=== PATIENT | female | born 1950 | race Caucasian/White ===

== ENCOUNTER 2021-03-09 06:35 | Day surgery (SDC) | payer MEDICARE, BC, SELFPAY ==
[2021-03-02 14:48] VITALS: BMI 31.1
--- NOTE | 2021-03-05 07:54 | MHC.SHP ---
Pre-Procedural Eval Section A Date of Service: 03/05/21 The patient is an INPATIENT: No The History & Physical has been completed within 30 days and I have reviewed it.: Yes Section B Chief Complaint: Cataract Right Eye Allergies: Allergies Allergy/AdvReac Type Severity Reaction Status Date / Time banana Allergy Intermediate lip Verified 03/02/21 14:54 swelling latex Allergy Intermediate lip Verified 03/02/21 14:54 swelling shellfish derived Allergy Intermediate lip Verified 03/02/21 14:54 swelling Plan Diagnosis/Plan: Unchanged I have reviewed the history and physical and performed a pertinent physical examination on my patient. No changes have occurred unless specified.
--- NOTE | 2021-03-06 10:43 | HO.ANESPROP2 ---
Documented by User: Aubrie Amanda 03/06/21 10:44 HPI - Anesthesia Eval Consult details Narrative: 70yo F for Right Cataract Extraction IOL Insertion PCP cleared No prev cataract on record PMFSH Past Medical History Medical History Anemia Anxiety Asthma Cervical spondylosis COVID-19 vaccine administered Elevated cholesterol History of MRSA infection HTN (hypertension) Hypothyroid Surgical History Surgical History H/O colonoscopy Social History Social History Are you a primary care coordination manager to a significant other at home: No Do you presently have visiting nurse or other home services: No Patient Tobacco Use Status: Former Tobacco user Quit Date: age 30 Tobacco use type: Cigarette Use of substances other than those prescribed or required for medical reasons: No Have you been hit, kicked, punched, or otherwise hurt by someone within the past year? If so, by whom?: No Advance Directives Information Provided: Yes Advance Directives on File: Yes Advance Directives Date on File: 03/09/21 Recently lost weight without trying: No Eating poorly because of decreased appetite: No Nutrition Risks: No Nutritional Risk Poor oral hygiene: No (has upper full denture) Meds Allergies Allergy/AdvReac Type Severity Reaction Status Date / Time banana Allergy Intermediate lip Verified 03/02/21 14:54 swelling latex Allergy Intermediate lip Verified 03/02/21 14:54 swelling shellfish derived Allergy Intermediate lip Verified 03/02/21 14:54 swelling Home Medications Medication Instructions Recorded Confirmed Last Taken Type albuterol sulfate [ProAir HFA] 2 puff INHALATION Q4-6H PRN 03/02/21 03/02/21 Unknown History aspirin [Aspirin Low Dose] 81 mg PO DAILY 03/02/21 03/02/21 03/08/21 08:00 History calcium carbonate-vitamin D2 1 tab PO DAILY 03/02/21 03/02/21 Unknown History [Calcium + Vitamin D] cetirizine 10 mg PO DAILY 03/02/21 03/02/21 Unknown History fluticasone propionate [Flonase] 1 spray INTRANASAL DAILY 03/02/21 03/02/21 Unknown History levothyroxine [Euthyrox] 1 tab PO DAILY 03/02/21 03/02/21 03/09/21 05:00 History losartan-hydrochlorothiazide 1 tab PO DAILY 03/02/21 03/02/21 Unknown History montelukast 1 tab PO QPM 03/02/21 03/02/21 Unknown History pravastatin 1 tab PO DAILY 03/02/21 03/02/21 Unknown History Exam Exam Date and Time: March 06, 2021 1043 Height,Weight and Vital Signs: Height 5 ft 4 in Weight 82.2 kg Assessment and Plan Assessment Anesthesia Assessment: Chart Reviewed Documented by User: Pascual Guerra 03/09/21 09:40 PMFSH Past Medical History Medical History Anemia Anxiety Asthma Cervical spondylosis COVID-19 vaccine administered Elevated cholesterol History of MRSA infection HTN (hypertension) Hypothyroid Surgical History Surgical History H/O colonoscopy Social History Social History Are you a primary care coordination manager to a significant other at home: No Do you presently have visiting nurse or other home services: No Patient Tobacco Use Status: Former Tobacco user Quit Date: age 30 Tobacco use type: Cigarette Use of substances other than those prescribed or required for medical reasons: No Have you been hit, kicked, punched, or otherwise hurt by someone within the past year? If so, by whom?: No Advance Directives Information Provided: Yes Advance Directives on File: Yes Advance Directives Date on File: 03/09/21 Recently lost weight without trying: No Eating poorly because of decreased appetite: No Nutrition Risks: No Nutritional Risk Poor oral hygiene: No (has upper full denture) Meds Allergies Allergy/AdvReac Type Severity Reaction Status Date / Time banana Allergy Intermediate lip Verified 03/02/21 14:54 swelling latex Allergy Intermediate lip Verified 03/02/21 14:54 swelling shellfish derived Allergy Intermediate lip Verified 03/02/21 14:54 swelling Home Medications Medication Instructions Recorded Confirmed Last Taken Type albuterol sulfate [ProAir HFA] 2 puff INHALATION Q4-6H PRN 03/02/21 03/02/21 Unknown History aspirin [Aspirin Low Dose] 81 mg PO DAILY 03/02/21 03/02/21 03/08/21 08:00 History calcium carbonate-vitamin D2 1 tab PO DAILY 03/02/21 03/02/21 Unknown History [Calcium + Vitamin D] cetirizine 10 mg PO DAILY 03/02/21 03/02/21 Unknown History fluticasone propionate [Flonase] 1 spray INTRANASAL DAILY 03/02/21 03/02/21 Unknown History levothyroxine [Euthyrox] 1 tab PO DAILY 03/02/21 03/02/21 03/09/21 05:00 History losartan-hydrochlorothiazide 1 tab PO DAILY 03/02/21 03/02/21 Unknown History montelukast 1 tab PO QPM 03/02/21 03/02/21 Unknown History pravastatin 1 tab PO DAILY 03/02/21 03/02/21 Unknown History Exam Airway Mallampati Class: II TM Dist: >3cm Neck ROM: Full Denture: Upper Heart: [id number] Lungs: cta b/l Assessment and Plan Assessment Anesthesia Assessment: Anesthesia Plan Discussed, PAT Visit and Chart Reviewed Final Anesthetic Review NPO: Yes ASA Class: III Final Preanesthetic Review: No Changes in Pt Med Stat, Meds/Allgs Chart Reviewed, Consent Obtained/Reviewed and Anes Risks/Benef Reviewed Patient Risk: Intermediate Procedure Risk: Low Assessment/Block/Sedation in SS: Assess/Block/Sedation-SS Anesthetic Plan Anesthetic Plan: MAC: and Agree w/ Assess. and Plan Disposition: Standard PACU
[2021-03-09 07:22] VITALS: BP 153/76; PULSE 71; RESP 18; TEMP 36.4; O2SAT 95
[2021-03-09] MEDS: Lactated Ringers 500 ML 50 ML IV (07:31)
[2021-03-09] MEDS: Tetracaine HCl/PF 0.5% Oph Sol 4 ML DROPS 1 DROP EYE-RIGHT (07:41)
[2021-03-09] MEDS: Tropicamide 1 % Ophth Sol 3 ML BTL 1 DROP EYE-RIGHT ×3 (07:42→07:54)
[2021-03-09] MEDS: Phenylephrine HCL 2.5% Oph SoL 2 ML BOTTLE 1 DROP EYE-RIGHT ×3 (07:46→07:58)
--- NOTE | 2021-03-09 10:27 | HO.PNOPHT ---
Ophthalmology Procedure Procedure Date of Service: 03/09/21 Ophthalmology Viscoelastic: Healclemente Duet Dual Pack Pro Ophthalmology Lenses: TECNIS [id number] (20) Procedure Notes: PREOPERATIVE DIAGNOSIS: Decreased visual acuity right eye secondary to cataract POSTOPERATIVE DIAGNOSIS: Same PROCEDURE: Right cataract extraction with intraocular lens insertion SURGEON: Ramírez Gibson M.D. ANESTHESIA: Topical/MAC ESTIMATED BLOOD LOSS: None COMPLICATIONS: None After obtaining informed consent, the patient was brought to the operating room suite and placed in the supine position. After adequate sedation per anesthesia, topical drops of Tetracaine were given to the right eye. The eye was then prepped and draped in the usual sterile fashion. The operating room microscope was then positioned over the operative eye and a lid speculum placed. A paracentesis was created. Viscoelastic was then instilled into the anterior chamber. A three plane incision was then created temporally, utilizing a 2.85 mm keratome. Capsulotomy forceps were then utilized to create a circular tear capsulotomy. Hydrodissection and hydrodelineation were carried out until adequate mobilization of the nucleus occurred. Phacoemulsification was then utilized to remove the dense central nucleus followed by removal of the cortical material utilizing the automated aspiration irrigation unit. Viscoelastic was instilled into the posterior capsular bag followed by placement of a posterior chamber intraocular lens without difficulty. The residual Viscoelastic was then removed utilizing the automated IA machine. The wound was checked and found to be watertight. The patient tolerated the procedure well and the lid speculum was removed. Intracameral injection of Vigamox 0.1 mL followed by a subtenon injection of Kenalog-40 0.2 mL were administered. The patient will be seen in the a.m.
[2021-03-09 10:48] VITALS: BP 148/72; PULSE 71; RESP 18; TEMP 36.6; O2SAT 97
== END 2021-03-09 11:24 | disposition home or self-care (01) ==
PROVIDERS: PCP Internal Medicine; Visit Provider Ophthalmology
PROC: (CPT 66985; principal; 2021-03-09 10:50)
DX: H25.11 Age-related nuclear cataract, right eye (principal); H52.4 Presbyopia; D50.9 Iron deficiency anemia, unspecified; J45.909 Unspecified asthma, uncomplicated; I10 Essential (primary) hypertension; E03.9 Hypothyroidism, unspecified; Z79.51 Long term (current) use of inhaled steroids; Z79.82 Long term (current) use of aspirin; Z79.899 Other long term (current) drug therapy; Z91.040 Latex allergy status; Z87.891 Personal history of nicotine dependence
CPT/HCPCS: 66984; J2250; J3300; V2632

== ENCOUNTER 2021-03-16 07:40 | Day surgery (SDC) | payer MEDICARE, BC, SELFPAY ==
[2021-03-02 14:58] VITALS: BMI 31.1
--- NOTE | 2021-03-11 13:03 | MHC.SHP ---
Pre-Procedural Eval Section A Date of Service: 03/11/21 The patient is an INPATIENT: No The History & Physical has been completed within 30 days and I have reviewed it.: Yes Section B Chief Complaint: Cataract Left Eye Allergies: Allergies Allergy/AdvReac Type Severity Reaction Status Date / Time banana Allergy Intermediate lip Verified 03/02/21 14:54 swelling latex Allergy Intermediate lip Verified 03/02/21 14:54 swelling shellfish derived Allergy Intermediate lip Verified 03/02/21 14:54 swelling Plan Diagnosis/Plan: Unchanged I have reviewed the history and physical and performed a pertinent physical examination on my patient. No changes have occurred unless specified.
--- NOTE | 2021-03-13 08:34 | HO.ANESPROP2 ---
Documented by User: Aubrie Amanda 03/13/21 08:35 HPI - Anesthesia Eval Consult details Narrative: 70yo F for Left Cataract Extraction IOL Insertion PCP cleared Right Eye 03/09: Midaz 2 PMFSH Past Medical History Medical History Anemia Anxiety Asthma Cervical spondylosis COVID-19 vaccine administered Elevated cholesterol History of MRSA infection HTN (hypertension) Hypothyroid Surgical History Surgical History H/O colonoscopy Social History Social History Are you a primary social worker palliative care to a significant other at home: No Do you presently have visiting nurse or other home services: No Patient Tobacco Use Status: Former Tobacco user Quit Date: age 30 Tobacco use type: Cigarette Use of substances other than those prescribed or required for medical reasons: No Have you been hit, kicked, punched, or otherwise hurt by someone within the past year? If so, by whom?: No Advance Directives Information Provided: No Advance Directives on File: No Advance Directives Date on File: 03/09/21 Recently lost weight without trying: No Eating poorly because of decreased appetite: No Nutrition Risks: No Nutritional Risk Poor oral hygiene: No (upper full denture) Meds Allergies Allergy/AdvReac Type Severity Reaction Status Date / Time banana Allergy Intermediate lip Verified 03/16/21 09:10 swelling latex Allergy Intermediate lip Verified 03/16/21 09:10 swelling shellfish derived Allergy Intermediate lip Verified 03/16/21 09:10 swelling Home Medications Medication Instructions Recorded Confirmed Last Taken Type albuterol sulfate [ProAir HFA] 2 puff INHALATION Q4-6H PRN 03/02/21 03/02/21 Unknown History aspirin [Aspirin Low Dose] 81 mg PO DAILY 03/02/21 03/02/21 03/15/21 History calcium carbonate-vitamin D2 1 tab PO DAILY 03/02/21 03/02/21 Unknown History [Calcium + Vitamin D] cetirizine 10 mg PO DAILY 03/02/21 03/02/21 Unknown History fluticasone propionate [Flonase] 1 spray INTRANASAL DAILY 03/02/21 03/02/21 Unknown History levothyroxine [Euthyrox] 1 tab PO DAILY 03/02/21 03/02/21 03/16/21 06:30 History losartan-hydrochlorothiazide 1 tab PO DAILY 03/02/21 03/02/21 Unknown History montelukast 1 tab PO QPM 03/02/21 03/02/21 Unknown History pravastatin 1 tab PO DAILY 03/02/21 03/02/21 Unknown History Exam Exam Date and Time: March 13, 2021 0834 Height,Weight and Vital Signs: Height 5 ft 4 in Weight 82.2 kg Assessment and Plan Assessment Anesthesia Assessment: Chart Reviewed Documented by User: Анна Devine 03/16/21 09:43 PMFSH Past Medical History Medical History Anemia Anxiety Asthma Cervical spondylosis COVID-19 vaccine administered Elevated cholesterol History of MRSA infection HTN (hypertension) Hypothyroid Surgical History Surgical History H/O colonoscopy Social History Social History Are you a primary social worker palliative care to a significant other at home: No Do you presently have visiting nurse or other home services: No Patient Tobacco Use Status: Former Tobacco user Quit Date: age 30 Tobacco use type: Cigarette Use of substances other than those prescribed or required for medical reasons: No Have you been hit, kicked, punched, or otherwise hurt by someone within the past year? If so, by whom?: No Advance Directives Information Provided: No Advance Directives on File: No Advance Directives Date on File: 03/09/21 Recently lost weight without trying: No Eating poorly because of decreased appetite: No Nutrition Risks: No Nutritional Risk Poor oral hygiene: No (upper full denture) Meds Allergies Allergy/AdvReac Type Severity Reaction Status Date / Time banana Allergy Intermediate lip Verified 03/16/21 09:10 swelling latex Allergy Intermediate lip Verified 03/16/21 09:10 swelling shellfish derived Allergy Intermediate lip Verified 03/16/21 09:10 swelling Home Medications Medication Instructions Recorded Confirmed Last Taken Type albuterol sulfate [ProAir HFA] 2 puff INHALATION Q4-6H PRN 03/02/21 03/02/21 Unknown History aspirin [Aspirin Low Dose] 81 mg PO DAILY 03/02/21 03/02/21 03/15/21 History calcium carbonate-vitamin D2 1 tab PO DAILY 03/02/21 03/02/21 Unknown History [Calcium + Vitamin D] cetirizine 10 mg PO DAILY 03/02/21 03/02/21 Unknown History fluticasone propionate [Flonase] 1 spray INTRANASAL DAILY 03/02/21 03/02/21 Unknown History levothyroxine [Euthyrox] 1 tab PO DAILY 03/02/21 03/02/21 03/16/21 06:30 History losartan-hydrochlorothiazide 1 tab PO DAILY 03/02/21 03/02/21 Unknown History montelukast 1 tab PO QPM 03/02/21 03/02/21 Unknown History pravastatin 1 tab PO DAILY 03/02/21 03/02/21 Unknown History Exam Airway Mallampati Class: II TM Dist: >3cm Neck ROM: Full Heart: rrr Lungs: cta Assessment and Plan Assessment Anesthesia Assessment: Anesthesia Plan Discussed and Chart Reviewed Final Anesthetic Review NPO: Yes ASA Class: II Final Preanesthetic Review: No Changes in Pt Med Stat and Consent Obtained/Reviewed Patient Risk: Low Procedure Risk: Low Anesthetic Plan Anesthetic Plan: MAC: Disposition: Standard PACU
[2021-03-16 09:16] VITALS: BP 171/74; PULSE 65; RESP 16; TEMP 36.8; O2SAT 97
[2021-03-16] MEDS: Tetracaine HCl/PF 0.5% Oph Sol 4 ML DROPS 1 DROP EYE-LEFT (09:18)
[2021-03-16] MEDS: Tropicamide 1 % Ophth Sol 3 ML BTL 1 DROP EYE-LEFT ×3 (09:22→09:23)
[2021-03-16] MEDS: Phenylephrine HCL 2.5% Oph SoL 2 ML BOTTLE 1 DROP EYE-LEFT ×3 (09:22→09:23)
[2021-03-16] MEDS: Lactated Ringers 500 ML 50 ML IV (09:22)
--- NOTE | 2021-03-16 10:26 | HO.PNOPHT ---
Ophthalmology Procedure Procedure Date of Service: 03/16/21 Ophthalmology Viscoelastic: Healon Duet Dual Pack Pro Ophthalmology Lenses: TECNIS [id number] (19.5) Procedure Notes: PREOPERATIVE DIAGNOSIS: Decreased visual acuity left eye secondary to cataract POSTOPERATIVE DIAGNOSIS: Same PROCEDURE: Left cataract extraction with intraocular lens insertion SURGEON: Ramírez Gibson M.D. ANESTHESIA: Topical/MAC ESTIMATED BLOOD LOSS: None COMPLICATIONS: None After obtaining informed consent, the patient was brought to the operation room suite and placed in the supine position. After adequate sedation per anesthesia, topical drops of Tetracaine were given to the left eye. The eye was then prepped and draped in the usual sterile fashion. The operating room microscope was then positioned over the operative eye and a lid speculum placed. A paracentesis was created. Viscoelastic was then instilled into the anterior chamber. A three plane incision was then created temporally, utilizing a 2.85 mm keratome. Capsulotomy forceps were then utilized to create a circular tear capsulotomy. Hydrodissection and hydrodelineation were carried out until adequate mobilization of the nucleus occurred. Phacoemulsification was then utilized to remove the dense central nucleus followed by removal of the cortical material utilizing the automated aspiration irrigation unit. Viscoat elastic was instilled into the posterior capsular bag followed by placement of a posterior chamber intraocular lens without difficulty. The residual Viscoat elastic was then removed utilizing the automated IA machine. The wound was check and found to be watertight. The patient tolerated the procedure well and the lid speculum was removed. Intracameral injection of Vigamox 0.1 mL followed by a subtenon injection of Kenalog-40 0.2 mL were administered. The patient will be seen in the a.m.
[2021-03-16 10:51] VITALS: BP 142/77; PULSE 62; RESP 16; TEMP 36.3; O2SAT 96
== END 2021-03-16 11:10 | disposition home or self-care (01) ==
PROVIDERS: PCP Internal Medicine; Visit Provider Ophthalmology
PROC: (CPT 66985; principal; 2021-03-16 10:40)
DX: H25.12 Age-related nuclear cataract, left eye (principal); H52.4 Presbyopia; I10 Essential (primary) hypertension; E03.9 Hypothyroidism, unspecified; J45.909 Unspecified asthma, uncomplicated; Z79.899 Other long term (current) drug therapy; Z91.040 Latex allergy status; Z87.891 Personal history of nicotine dependence
CPT/HCPCS: 66984; J2250; J3010; J3300; V2632

== ENCOUNTER 2021-05-21 16:31 | Outpatient (REF) | payer MEDICARE, BC, SELFPAY | END 2021-05-21 16:32 | disposition home or self-care (01) | LOC: HO.LNP 16:31 | PROVIDERS: Visit Provider Internal Medicine | DX: J06.9 Acute upper respiratory infection, unspecified (principal); Z20.822 Contact with and (suspected) exposure to COVID-19 | CPT/HCPCS: U0003; U0005 ==

== ENCOUNTER 2023-10-27 15:40 | Inpatient (IN) | payer MEDICARE, BC, SELFPAY ==
--- NOTE | ~2023-10-27 | XR_ITS ---
EXAMINATION: XR PELVIS CLINICAL INFORMATION: Postop COMPARISON: None available. TECHNIQUE: AP view of the pelvis. FINDINGS: No fracture. There is a left total hip prosthesis in satisfactory position. There is mild degenerative change of the right hip. Alignment is anatomic. Visualized portions of the sacroiliac joints and the pubic symphysis are normal. Skin dudley are seen over the left hip. XR/XR pelvis 1-2V IMPRESSION: Left total hip prosthesis in satisfactory position.
--- NOTE | ~2023-10-27 | XR_ITS ---
EXAMINATION: XR HIP, LEFT CLINICAL INFORMATION: Trauma. COMPARISON: None available. TECHNIQUE: Two views of the left hip. FINDINGS: There is a left femoral subcapital neck fracture with impaction and mild posterior angulation. There is no dislocation seen. There is mild degenerative changes right hip joint with loss of joint space and periarticular spurring. The SI joints are symmetrical and normal. There is mild left hip soft tissue swelling. XR/XR hip LT w PEL1V IMPRESSION: Subcapital left neck femoral fracture with likely mild impaction and posterior angulation. There is foreshortening of the neck. Mild soft tissue swelling.
--- NOTE | ~2023-10-27 | CT_ITS ---
EXAMINATION: CT cervical spine without contrast, CT head/brain without contrast INDICATION INFORMATION: Reason for Exam trauma COMPARISON: MR brain 02/19/2016 TECHNIQUE: Separate noncontrast CT examinations of the head and cervical spine were performed. Coronal and sagittal images were created for each examination at the technologist workstation. This CT examination was performed using dose optimization techniques as appropriate, variously including the following: *Automated exposure control *Adjustment of mA and/or kV according to patient size (this includes techniques or standardized protocols for targeted exams where dose is matched to indication/reason for exam; i.e. extremities or head) *Use of iterative reconstruction technique DLP: 1084.06 mGy-cm mGy-cm FINDINGS: Head: No acute osseous or soft tissue abnormality. The mastoid air cells and visualized portions of the paranasal sinuses are well aerated. Bilateral lens replacements. There is no evidence of acute intracranial hemorrhage or territorial infarction. No abnormal mass effect or midline shift is seen. Larsen to white matter differentiation is well preserved. No extra-axial fluid collections are identified. No hydrocephalus. Proportional prominence of the ventricles and sulcal spaces is consistent with moderate volume loss. Patchy periventricular and deep white matter hypoattenuation is consistent with mild small vessel ischemic changes. Cervical spine: There is no evidence of acute cervical spine fracture. Vertebral bodies remain normal in height. Loss of the usual cervical spine lordosis. Advanced multilevel degenerative disc disease with loss of disc space height and advanced facet arthropathy which results in multilevel severe neural foraminal narrowing. No pre- or paravertebral soft tissue abnormality is identified. Visualized portions of the lung apices are unremarkable. The thyroid gland is atrophic. CT/CT cervical spine wo IV con IMPRESSION: 1. No acute intracranial abnormality. 2. No cervical spine fracture or traumatic malalignment. 3. Advanced multilevel degenerative disc disease in the cervical spine with multilevel severe neural foraminal narrowing.
--- NOTE | ~2023-10-27 | XR_ITS ---
EXAMINATION: XR CHEST CLINICAL INFORMATION: Trauma. COMPARISON: None available. TECHNIQUE: Frontal view of the chest was obtained. FINDINGS: Heart size is normal. Both lungs are clear. No pleural effusion. No pneumothorax. No acute osseous abnormality. XR/XR chest 1V IMPRESSION: No acute cardiopulmonary disease.
[2023-10-27 16:03] VITALS: BP 134/80; BP 136/76; PULSE 63; PULSE 72; RESP 18; TEMP 36.5; O2SAT 93; O2SAT 98; BMI 27.6
--- NOTE | 2023-10-27 16:09 | ECG_ITS ---
Test Reason : PAIN Blood Pressure : / mmHG Vent. Rate : 065 BPM Atrial Rate : 065 BPM P-R Int : 152 ms QRS Dur : 084 ms QT Int : 480 ms P-R-T Axes : 042 -13 -07 degrees QTc Int : 500 ms Normal sinus rhythm Nonspecific ST and T wave abnormality Prolonged QTc Abnormal ECG No previous ECGs available Referred By: Keven Cedillo Electronically Signed By:Ivan Corado
--- NOTE | 2023-10-27 16:10 | PC.NURSE ---
a&ox4. vss and up to date. nsr on the front desk monitor. pt presents to the ED d/t a witnessed fall at her daughter's house. pt was in the kitchen when she tripped/fell over a bag that was on the floor. +headstrike onto the fridge as well as the floor. -loc. -thinners. pt c/o 10/10 left sided hip pain as well as nausea. extremely tender to touch. limited ROM. no sob/wob noted. respirations even and unlabored. pt in c-collar at this time. pt seen by ED provider/aware of plan of care at this time. daughter bedside for support. call palmer placed within reach.
--- NOTE | 2023-10-27 16:14 | ED.GENADULT ---
HPI - General Adult General Chief complaint: Fall Stated complaint: Poss fx hip, visible L leg deformity from [facility] fal Time Seen by Provider: 10/27/23 16:01 Source: patient, family, EMS, RN notes reviewed and old records reviewed Mode of arrival: EMS Limitations: no limitations History of Present Illness HPI narrative: 72-year-old female with past medical history significant for Jimena's thyroiditis, hypertension, hyperlipidemia presents for evaluation after a fall. Patient reports that she tripped over a bag that was on the floor. Her daughter witnessed the event and saw her strike her head The patient did not have any loss of consciousness. She complains of 10/10 left hip pain. Denies any head or neck pain but she presents in a C-collar She was given fentanyl 75 mcg and normal saline 200 cc via IV and route to the hospital She still endorses some mild nausea but her pain seems better controlled Related Data Home Medications Medication Instructions Recorded Confirmed albuterol sulfate 90 mcg/actuation 2 puff inhalation Q4-6H PRN 03/02/21 03/02/21 aerosol inhaler (ProAir HFA) Wheezing aspirin 81 mg tablet,delayed 81 mg PO DAILY 03/02/21 03/02/21 release (Nik Low Dose Aspirin) calcium carb-ergocalciferol (vit 1 tab PO DAILY 03/02/21 03/02/21 D2) 600 mg calcium-200 unit tablet cetirizine 10 mg tablet 10 mg PO DAILY 03/02/21 03/02/21 fluticasone propionate 50 1 spray intranasal DAILY 03/02/21 03/02/21 mcg/actuation nasal spray,suspension levothyroxine 100 mcg tablet 1 tab PO DAILY 03/02/21 03/02/21 (Euthyrox) losartan 100 1 tab PO DAILY 03/02/21 03/02/21 mg-hydrochlorothiazide 25 mg tablet montelukast 10 mg tablet 1 tab PO QPM 03/02/21 03/02/21 pravastatin 40 mg tablet 1 tab PO DAILY 03/02/21 03/02/21 Allergies Allergy/AdvReac Type Severity Reaction Status Date / Time banana Allergy Intermediate lip Verified 05/21/21 13:50 swelling latex Allergy Intermediate lip Verified 05/21/21 13:50 swelling shellfish derived Allergy Intermediate lip Verified 05/21/21 13:50 swelling ibuprofen Allergy Unknown Verified 10/27/23 16:10 Review of Systems Constitutional: Constitutional: Denies frequent falls and Denies headache(s) Eyes: Eyes: Denies blurry vision ENT: Denies headache(s) Cardiovascular: Cardiovascular: Denies chest pain and Denies syncope Respiratory: Respiratory: Denies cough Gastrointestinal: Gastrointestinal: Denies abdominal pain Musculoskeletal: Musculoskeletal: Reports arthralgias, Reports joint swelling and Reports limited range of motion Integumentary/Breasts: Skin/Breast: Denies rash Neurologic: Denies syncope, Denies frequent falls and Denies headache(s) [facility] Past Medical History Medical History Anemia Anxiety Asthma Cervical spondylosis COVID-19 vaccine administered Elevated cholesterol History of MRSA infection HTN (hypertension) Hypothyroid Surgical History H/O colonoscopy Social History Social History Are you a primary child care assistant to a significant other at home: No Do you presently have visiting nurse or other home services: No Patient Tobacco Use Status: Former Tobacco user Quit Date: age 30 Tobacco use type: Cigarette Smoked in Last 30 Days: No Use of substances other than those prescribed or required for medical reasons: No Advance Directives: Yes Advance Directives on File: Yes Advance Directives Date on File: 03/09/21 Physical Exam ED Vital Signs: Vital Signs - 24 hr 10/27/23 16:03 Temperature 97.7 F Pulse Rate 63 Respiratory Rate 18 Blood Pressure 136/76 Pulse Oximetry 93 Oxygen Delivery Method Room Air BMI result Body Mass Index 27.6 Const General: healthy appearing, alert and awake Nutritional Appearance: well nourished Orientation/consciousness: patient oriented x3 HENMT Head: Yes normocephalic and Yes atraumatic Eyes Eyelids: Yes eyelids normal Conjunctivae: conjunctivae normal Sclerae: sclerae normal Corneas: corneas normal Pupils: Equal, round and reactive pupils present EOM: EOMs intact bilaterally Resp Effort & Inspection: normal respiratory effort, able to speak in complete sentences and not labored GI Inspection: No distended Palpation (GI): Soft to palpation, not firm, nontender, no guarding and not rigid General: Yes no CVA tenderness Back/Spine/Pelvis Back: no CVA tenderness Cervical Spine: collar present and No Cervical spine tenderness Skin General skin exam: elasticity normal Neuro Other: Patient has slight shortening with external rotation of the left lower extremity. She is tender in the left hip minimal range of motion left hip. She is able to wiggle all her toes. DP pulses 2+ and equal General: patient oriented x3 Cranial nerves: Yes Equal, round and reactive pupils present and Yes Bilaterally intact EOM present Cognition (Neuro): normal cognition Extrem Other: Moving all extremities well without any obvious deformities Medications Administered Discontinued Medications Generic Name Dose Route Start Last Admin Trade Name Rudy PRN Reason Stop Dose Admin Fentanyl 50 mcg 10/27/23 16:19 10/27/23 16:30 Fentanyl Citrate/Pf 100 Mcg/2 Ml Vial IVPUSH 10/27/23 16:20 50 mcg ONCE ONE Administration Protocol Metoclopramide HCl 10 mg 10/27/23 16:19 10/27/23 16:31 Metoclopramide Hcl 10 Mg/2 Ml Vial IVPUSH 10/27/23 16:20 10 mg ONCE ONE Administration Ondansetron HCl 4 mg 10/27/23 16:48 10/27/23 17:25 Ondansetron Hcl 4 Mg/2 Ml Vial IVPUSH 10/27/23 16:49 4 mg ONCE ONE Administration Medical Decision Making Medical Decision Making [facility] Narrative: 72-year-old female presents after a fall, her left lower extremity is shortened and rotated, highly concerning for left hip fracture. Plan for x-rays left hip and chest due to the fall/trauma. She arrived in a C-collar from EMS, unable to clear the C-collar with nexus criteria due to the likely distracting injury. Plan for CT brain, cervical spine as the daughter did witnessed head strike. Labs ordered, if hip fracture is confirmed the patient will likely require a Palma catheter Differential Diagnosis Differential Diagnoses: The differential diagnosis associated with the presentation includes Left hip fracture Hip dislocation Pelvic fracture Contusion Cervical strain Concussion Admission/Observation Consideration of admission/observation: Escalation of care including admission/observation considered Consult Healthcare Provider Management of the patient was discussed with: Dialysis Rn (Dr. Rodriguez, orthopedics due to hip fracture) Lab Data [facility] Lab Attestation statement: I reviewed the patient's lab results. No leukocytosis, mild anemia with a hemoglobin 11.9 hematocrit 34.7. A low platelet count of 141 K. no left shift. Coagulation studies within normal limits. Chemistry in his he has a significant for a hypokalemia of 2.8, this is likely related to hydrochlorothiazide use and will be supplemented orally. No other significant electrolyte abnormalities. 10/27/23 16:18 10/27/23 16:18 Labs: Lab Results 10/27/23 10/27/23 Range/Units 16:18 16:39 WBC 5.8 (4.8-10.8) X10*3/uL RBC 3.94 L (4.20-5.50) X10*6/uL Hgb 11.9 L (12.0-16.0) g/dl Hct 34.7 L (37.0-47.0) % MCV 88.1 (80.0-98.0) fL MCH 30.2 (27.0-33.0) pg MCHC 34.3 (31.0-35.0) g/dl RDW 12.6 (11.0-16.0) % Plt Count 141 L (160-400) X10*3/uL MPV 11.0 (9.4-12.3) fL Immature Gran % (Auto) 0.7 H (0.0-0.4) % Neut % (Auto) 51.9 (45-73) % Lymph % (Auto) 38.4 (20-40) % [place] % (Auto) 7.1 (2-11) % Eos % (Auto) 1.4 (0-4) % Baso % (Auto) 0.5 (0-2) % Lymph # (Auto) 2.2 (1.2-4.9) X10*3/uL [place] # (Auto) 0.4 (0.1-1.2) X10*3/uL Eos # (Auto) 0.1 (0.0-0.4) X10*3/uL Baso # (Auto) 0.0 (0.0-0.2) X10*3/uL Abs Immat Gran (auto) 0.04 H (0.00-0.03) X10*3/uL Absolute Neuts (auto) 3.0 (2.0-8.3) x10*3/uL Absolute Nucleated RBC 0.000 (0.0-0.012) X10*3/uL Nucleated RBC % (auto) 0.0 (0.0-0.2) /100WBC PT 13.3 (11.1-13.3) SEC INR 1.1 (0.9-1.1) Sodium 139 (135-145) mmol/L Potassium 2.8 L* (3.3-5.1) mmol/L Chloride 106 (96-108) mmol/L Carbon Dioxide 27 (22-29) mmol/L Anion Gap 9 L (12-20) BUN 12 (9-16) mg/dL Creatinine 0.60 (0.5-1.4) mg/dL Estim Creat Clear Calc 86.4 Estimated GFR > 60 Random Glucose 154 H (60-115) mg/dL Calcium 8.3 L (8.4-10.2) mg/dL Total Bilirubin 1.4 H (0.0-1.0) mg/dL AST 35 H (5-31) U/L ALT 24 (0-31) U/L Alkaline Phosphatase 58 (39-117) U/L Troponin I High Sens < 2.7 (<3.5-17.0) ng/L Total Protein 6.2 L (6.5-8.0) g/dL Albumin 3.7 (3.5-5.0) g/dL Lipase 24 (8-78) U/L Blood Type A Positive Antibody Screen NEGATIVE Independent Interpretation I performed an independent interpretation of an: Plain X-Ray (Acute fracture of the left femoral neck with superior displacement of the femur) Radiology Impression Discussion of test interpretation with radiology: I have reviewed the radiologist's reading. (No acute intracranial abnormality. No cervical spine fracture or traumatic malalignment. There is advanced multilevel degenerative disc disease in the cervical spine with multilevel severe neural foraminal narrowing) Discharge Plan Discharge Clinical Impression: Closed hip fracture Qualifiers: Encounter type: initial encounter Laterality: left Qualified Code(s): S72.002A - Fracture of unspecified part of neck of left femur, initial encounter for closed fracture Patient Disposition: Admitted As Inpatient Prescriptions: No Action cetirizine 10 mg Tablet 10 mg PO DAILY pravastatin 40 mg tablet 1 tab PO DAILY aspirin [Nik Low Dose Aspirin] 81 mg Tablet,Delayed Release (Dr/Ec) 81 mg PO DAILY levothyroxine [Euthyrox] 100 mcg tablet 1 tab PO DAILY losartan-hydrochlorothiazide 100-25 mg tablet 1 tab PO DAILY montelukast 10 mg tablet 1 tab PO QPM Calcium + Vitamin D 600 mg calcium- 200 unit Tablet 1 tab PO DAILY albuterol sulfate [ProAir HFA] 90 mcg/actuation Hfa Aerosol Inhaler 2 puff INHALATION Q4-6H PRN (Reason: Wheezing) fluticasone propionate [Flonase] 50 mcg/actuation Jean,Suspension 1 spray INTRANASAL DAILY
--- NOTE | 2023-10-27 16:18 | PC.NURSE ---
18gIV placed in the left AC by EMS. patent/intact. labs obtained/sent to lab. pt c/o increase in pain - requesting medication. ED provider notified/aware.
[2023-10-27 16:24] LABS: MANUAL DIFF FLAG NO
[2023-10-27 16:25] LABS: Basophils Percent Auto 0.5 % (0-2); Eosinophils Absolute Auto 0.1 X10*3/uL (0.0-0.4); Eosinophils Percent Auto 1.4 % (0-4); Hematocrit 34.7 % (37.0-47.0); Hemoglobin 11.9 g/dl (12.0-16.0); Imm Gran Abs Auto 0.04 X10*3/uL (0.00-0.03); Imm Gran Pct Auto 0.7 % (0.0-0.4); Lymphocytes Absolute Auto 2.2 X10*3/uL (1.2-4.9); Lymphocytes Percent Auto 38.4 % (20-40); Mean Corpuscular HGB Conc 34.3 g/dl (31.0-35.0); Mean Corpuscular Hemoglobin 30.2 pg (27.0-33.0); Mean Corpuscular Volume 88.1 fL (80.0-98.0); Monocytes Absolute Auto 0.4 X10*3/uL (0.1-1.2); Monocytes Percent Auto 7.1 % (2-11); Neutrophils Percent Auto 51.9 % (45-73); Platelet Count 141 X10*3/uL (160-400); Red Blood Count 3.94 X10*6/uL (4.20-5.50); Red Cell Distribution Width 12.6 % (11.0-16.0); White Blood Count 5.8 X10*3/uL (4.8-10.8)
[2023-10-27] MEDS: fentaNYL citrate/PF 100 MCG/2 ML VIAL 50 MCG IVPUSH (16:30)
[2023-10-27 16:31] LABS: INTERNATIONAL NORM RATIO 1.1 (0.9-1.1); Prothrombin Time 13.3 SEC (11.1-13.3)
[2023-10-27] MEDS: Metoclopramide HCl 10 MG/2 ML VIAL IVPUSH (16:31)
--- NOTE | 2023-10-27 16:35 | PC.NURSE ---
medication administered per provider order. effectiveness pending. pt vomited onto c-collar/shirt. new c-collar placed. pt waiting to go to CT at this time. tech performing ekg. plan of care ongoing.
[2023-10-27 16:49] LABS: Troponin-I High Sensitivity < 2.7 ng/L (<3.5-17.0)
[2023-10-27 16:50] LABS: Alanine Aminotransferase 24 U/L (0-31); Albumin Level 3.7 g/dL (3.5-5.0); Alkaline Phosphatase 58 U/L (39-117); Anion Gap 9 (12-20); Aspartate Amino Transferase 35 U/L (5-31); Bilirubin Total 1.4 mg/dL (0.0-1.0); Blood Urea Nitrogen 12 mg/dL (9-16); Calcium 8.3 mg/dL (8.4-10.2); Carbon Dioxide 27 mmol/L (22-29); Chloride 106 mmol/L (96-108); Creatinine Clr Calc Pharmacy 86.4; Estimated Glomerular Filt Rate > 60; Glucose Random 154 mg/dL (60-115); Lipase 24 U/L (8-78); Potassium 2.8 mmol/L (3.3-5.1); Sodium 139 mmol/L (135-145); Total Protein 6.2 g/dL (6.5-8.0)
[2023-10-27] MEDS: ondansetron HCL 4 MG/2 ML VIAL IVPUSH ×2 (17:25→20:39)
[2023-10-27] MEDS: Potassium Chloride ER 20 MEQ TAB.ER.PRT 40 MEQ PO (18:38)
[2023-10-27 18:53] VITALS: BP 145/72; PULSE 78; RESP 16; O2SAT 93
[2023-10-27 19:00] LABS: Appearance Urine Cloudy; Color Urine Yellow; Glucose Urine UA Negative (Negative); Leukocyte Esterase Urine Trace (Negative); Nitrite Urine Negative (Negative); Specific Gravity - Urine 1.015 (1.005-1.025); UMIC TRIGGER UACC YES; Urine Blood Negative (Negative); Urine Ketones Trace mg/dL (Negative); Urine Protein Negative (Neg-Trace)
--- NOTE | 2023-10-27 19:01 | PM.IMHP ---
History of Present Illness Date of Service: 10/27/23 Attending physician on admission: Lizzeth Glynn Chief Complaint: Fall at home with left hip pain Pt is a 72-year-old female with a PMH significant for?HTN, HLD, mild persistent asthma, and hypothyroidism who presents to the ED for evaluation after mechanical fall at home. Patient was at daughter's home talking to her in the kitchen when she tripped over a bag on the floor and landed on her left hip on the ceramic tile floor. Head apparently struck refrigerator. Fall was witnessed by patient's daughter. Patient immediately complained of 10/10 left hip pain and was unable to stand or bear weight on left leg. Denies loss of consciousness. No lightheadedness or dizziness. Patient seen and examined in room where she is resting comfortably in bed. Reports still feeling a dull ache in left hip, though pain overall well managed. Reports feeling ?a little? numbness and tingling in left leg. Experienced one episode nausea and vomiting earlier in the day. Denies fever, chills, abdominal pain. No shortness of breath. Denies cough. No chest pain/pressure, palpitations. In the ED pt was slightly hypertensive up to 145/72, vitals otherwise WNL. Labs were significant for potassium of 2.8, bilirubin 1.4, and AST 35. No leukocytosis. Renal function baseline. Troponins negative. UA negative for UTI. Hip and pelvis x-ray found subcapital left neck femoral fracture with likely mild impaction and posterior angulation. CXR showed no acute cardiopulmonary disease. CT?of head found no acute intracranial abnormality. CT of cervical spine found no acute fracture or traumatic malalignment, but did show advanced multilevel degenerative disc disease. EKG demonstrated normal sinus rhythm without evidence of significant acute ischemia. Pt was treated with fentanyl, metoclopramide, ondansetron, and potassium chloride. Pt will be admitted to the hospital for treatment and further evaluation of acute left hip fracture. Review of Systems Review of Systems: Fall at home on left hip Left hip fracture Nausea and vomiting x1 episode Denies lightheadedness, dizziness No chest pain/pressure, palpitations Denies fever, chills, abdominal pain No shortness a breath [facility] Medical History Anemia Anxiety Asthma Cervical spondylosis COVID-19 vaccine administered Elevated cholesterol History of MRSA infection HTN (hypertension) Hypothyroid Surgical History H/O colonoscopy Social History Are you a primary medicare interviewer to a significant other at home: No Do you presently have visiting nurse or other home services: No Patient Tobacco Use Status: Former Tobacco user Quit Date: age 30 Tobacco use type: Cigarette Smoked in Last 30 Days: No Use of substances other than those prescribed or required for medical reasons: No Advance Directives: Yes Advance Directives on File: Yes Advance Directives Date on File: 03/09/21 Meds Allergies Allergy/AdvReac Type Severity Reaction Status Date / Time banana Allergy Intermediate lip Verified 05/21/21 13:50 swelling latex Allergy Intermediate lip Verified 05/21/21 13:50 swelling shellfish derived Allergy Intermediate lip Verified 05/21/21 13:50 swelling ibuprofen Allergy Unknown Verified 10/27/23 16:10 Home Medications Medication Instructions Recorded Confirmed Last Taken Type albuterol sulfate 90 mcg/actuation 2 puff inhalation Q4-6H PRN 03/02/21 10/27/23 Unknown History aerosol inhaler (ProAir HFA) Wheezing calcium carb-ergocalciferol (vit 1 tab PO DAILY 03/02/21 10/27/23 10/27/23 History D2) 600 mg calcium-200 unit tablet cetirizine 10 mg tablet 10 mg PO DAILY 03/02/21 10/27/23 10/27/23 History fluticasone propionate 50 1 spray intranasal DAILY PRN 03/02/21 10/27/23 Unknown History mcg/actuation nasal Congestion spray,suspension losartan 100 1 tab PO DAILY 03/02/21 10/27/23 10/27/23 History mg-hydrochlorothiazide 25 mg tablet montelukast 10 mg tablet 1 tab PO QPM 03/02/21 10/27/23 10/26/23 History pravastatin 40 mg tablet 1 tab PO DAILY 03/02/21 10/27/23 10/27/23 History acetaminophen 650 mg 1,300 mg PO DAILY 10/27/23 10/27/23 10/27/23 History tablet,extended release levothyroxine 112 mcg tablet 112 mcg PO DAILY 10/27/23 10/27/23 10/27/23 History Physical Exam Vital Signs and Narrative: Vital Signs: Last Vital Signs Temp 97.7 F 10/27/23 16:03 Pulse 78 10/27/23 18:53 Resp 16 10/27/23 18:53 BP 145/72 H 10/27/23 18:53 Pulse Ox 93 10/27/23 18:53 O2 Del Method Room Air 10/27/23 18:53 BMI result Body Mass Index 27.6 Constitutional: Alert, in no acute distress. Mental Status: Oriented to person, place and time. Eyes: Pupils are equal, round, and reactive to light. Ear, Nose, and Throat: Oropharynx clear, mucous membranes moist. Ears and nose without deformities. Trachea midline. Respiratory: Clear to auscultation bilaterally. No wheezing, rales, or rhonchi. Cardiovascular: S1, S2 regular. No murmurs, rubs, or gallops. Gastrointestinal: Abdomen soft, non-tender, non-distended. Normal bowel sounds. Neurologic: Cranial nerves II-XII are grossly intact bilaterally. No focal neurological deficits. Moves all extremities spontaneously. Skin: Warm, dry. Musculoskeletal: No cyanosis or clubbing. Extremities: Left leg foreshortened and externally rotated. Hip ROM limited secondary to pain. Psychiatric: Normal mood and affect. Results Labs 10/27/23 16:18 10/27/23 16:18 Labs: Laboratory Results - last 24 hr 10/27/23 10/27/23 16:18 16:39 MCV 88.1 MCH 30.2 MCHC 34.3 RDW 12.6 Plt Count 141 L MPV 11.0 Immature Gran % (Auto) 0.7 H Neut % (Auto) 51.9 Lymph % (Auto) 38.4 [place] % (Auto) 7.1 Eos % (Auto) 1.4 Baso % (Auto) 0.5 Lymph # (Auto) 2.2 [place] # (Auto) 0.4 Eos # (Auto) 0.1 Baso # (Auto) 0.0 Abs Immat Gran (auto) 0.04 H Absolute Neuts (auto) 3.0 Absolute Nucleated RBC 0.000 Nucleated RBC % (auto) 0.0 PT 13.3 INR 1.1 Anion Gap 9 L Estim Creat Clear Calc 86.4 Estimated GFR > 60 Random Glucose 154 H Calcium 8.3 L Total Bilirubin 1.4 H AST 35 H ALT 24 Alkaline Phosphatase 58 Troponin I High Sens < 2.7 Total Protein 6.2 L Albumin 3.7 Lipase 24 Blood Type A Positive Antibody Screen NEGATIVE Imaging Radiologist's Impressions: Impressions Cervical Spine CT 10/27/23 17:12 IMPRESSION: 1. No acute intracranial abnormality. 2. No cervical spine fracture or traumatic malalignment. 3. Advanced multilevel degenerative disc disease in the cervical spine with multilevel severe neural foraminal narrowing. Head CT 10/27/23 17:12 IMPRESSION: 1. No acute intracranial abnormality. 2. No cervical spine fracture or traumatic malalignment. 3. Advanced multilevel degenerative disc disease in the cervical spine with multilevel severe neural foraminal narrowing. Chest X-Ray 10/27/23 17:55 IMPRESSION: No acute cardiopulmonary disease. Hip/Pelvis X-Ray 10/27/23 17:55 IMPRESSION: Subcapital left neck femoral fracture with likely mild impaction and posterior angulation. There is foreshortening of the neck. Mild soft tissue swelling. Assessment and Plan (1) Closed hip fracture: Qualifiers: Encounter type: initial encounter Laterality: left Qualified Code(s): S72.002A - Fracture of unspecified part of neck of left femur, initial encounter for closed fracture Status: Acute Plan Pt is a 72-year-old female with a PMH significant for?HTN, HLD, mild persistent asthma, and hypothyroidism who presents to the ED for evaluation after mechanical fall at home. Pt will be admitted to the hospital for treatment and further evaluation of acute left hip fracture. Left hip fracture Hip and pelvis x-ray subcapital neck femoral fracture with likely mild impaction and posterior angulation Secondary to mechanical fall at home Ortho consulted, plan on performing surgical procedure in the morning Pain management Clear liquid diet for now, NPO after midnight Pneumatic boots for DVT prophylaxis RCRI score 0, no significant known cardiac history; EKG without significant ischemic changes Patient is at intermediate risk for planned procedure; no further workup indicated at this time Hypokalemia Patient's potassium 2.8 at time of presentation Patient given potassium supplementation in ED Will give additional 40 mEq potassium supplementation Follow potassium HTN Continue home meds HLD Continue statin Asthma Not in acute exacerbation Continue home inhalers Full Code Attending:?Dr. Piña DVT Prophylaxis: Pneumatic boots due to planned surgical procedure Pt will require a hospitalization of at least two nights for treatment of?left hip fracture with surgical procedure planned for tomorrow. Quality Stroke Does the patient have a stroke diagnosis?: No VTE Prior VTE?: No VTE Risk Level:: Medical - moderate - high VTE Device Contraindication: N/A - Device Ordered VTE Drug Contraindication: Treatment Not Indicated
[2023-10-27 19:03] LABS: Bacteria Urine 4+ (None Seen); Hyaline Casts Urine 0-2 /LPF (0-2); RBC Urine 0-2 /HPF (0-2); Squamous Epithelial Cell Urine 0-2 /HPF (0-2); WBC Urine 0-5 /HPF (0-5)
--- NOTE | 2023-10-27 19:04 | PHA.MEDREC ---
Pharmacy Consult ? Medication Reconciliation Pharmacy has completed the medication reconciliation. Patient reported medications names, unsure of doses. Utilized claim history for doses Otoniel BrisenoD
--- NOTE | 2023-10-27 19:14 | PC.NURSE ---
indwelling catheter placed at this time. 400ml of clear/dark yellow urine noted immediately post output. urine obtained/sent to lab.
[2023-10-27 19:27] VITALS: BP 142/60; PULSE 79; RESP 20; TEMP 36.8; O2SAT 96
[2023-10-27] MEDS: Potassium Chloride Packet 20 MEQ PACKET 40 MEQ PO (19:49)
--- NOTE | 2023-10-27 19:54 | PC.NURSE ---
assumed care of pt at 1900 - pt resting comfortably on stretcher, daughter at bedside. tellez catheter in place. pt offers no current complaints, in no apparent distress. on satellite project site monitor. call palmer within reach - plan of care ongoing
[2023-10-27] MEDS: Montelukast Sodium 10 MG TABLET PO (20:17)
[2023-10-27] MEDS: Morphine Sulfate 4 MG/ML CARTRIDGE IVPUSH (20:39)
[2023-10-28] VITALS (14 sets, daily range): BP systolic 120–153; BP diastolic 54–76; PULSE 59–84; RESP 16–20; TEMP 36.1–37.2; O2SAT 90–99; BMI 28.6
[2023-10-28] MEDS: Morphine Sulfate 4 MG/ML CARTRIDGE IVPUSH ×3 (01:49→17:17)
[2023-10-28] MEDS: Melatonin 3 MG TABLET 6 MG PO ×2 (01:51→20:54)
[2023-10-28] MEDS: Levothyroxine Sodium 112 MCG TABLET PO (05:54)
[2023-10-28 05:55] LABS: Hematocrit 34.1 % (37.0-47.0); Hemoglobin 11.8 g/dl (12.0-16.0); Mean Corpuscular HGB Conc 34.6 g/dl (31.0-35.0); Mean Corpuscular Hemoglobin 30.6 pg (27.0-33.0); Mean Corpuscular Volume 88.6 fL (80.0-98.0); Mean Platelet Volume 11.5 fL (9.4-12.3); Platelet Count 128 X10*3/uL (160-400); Red Blood Count 3.85 X10*6/uL (4.20-5.50); Red Cell Distribution Width 12.7 % (11.0-16.0); White Blood Count 8.6 X10*3/uL (4.8-10.8)
[2023-10-28] MEDS: ondansetron HCL 4 MG/2 ML VIAL IVPUSH ×2 (05:55→14:20)
[2023-10-28 06:29] LABS: Anion Gap 11 (12-20); Blood Urea Nitrogen 13 mg/dL (9-16); Calcium 8.7 mg/dL (8.4-10.2); Carbon Dioxide 26 mmol/L (22-29); Chloride 108 mmol/L (96-108); Creatinine Clr Calc Pharmacy 78.5; Estimated Glomerular Filt Rate > 60; Glucose Random 109 mg/dL (60-115); Potassium 4.2 mmol/L (3.3-5.1); Sodium 141 mmol/L (135-145)
--- NOTE | 2023-10-28 06:35 | P.CONOP_ITS ---
History of Present Illness HPI Consult date: 10/27/23 Requesting physician: Pao Oleary Consult reason: fracture Chief complaint: Left hip fracture Narrative: This is a pleasant and healthy 72 yo who slipped and fell onto her left hip. She was immediately taken to the hospital where radiographs revealed a femoral neck fracture. She denies LOC of other injury. She describes left hip pain. She is ambulatory without assistive devices at baseline. Her daughter is at her bedside. She describes good health and takes medications for her thyroid, allergieas, HTN and a statin. Review of Systems 2 Review of Systems: Yes all other systems are reviewed and are negative Eyes: Eyes: Reports no additional eye complaints ENT: Reports system reviewed and no additional complaints, except as documented Cardiovascular: Cardiovascular: Reports no additional cardiovascular complaints Respiratory: Respiratory: Reports no additional respiratory complaints Gastrointestinal: Gastrointestinal: Reports no additional gastrointestinal complaints Musculoskeletal: Musculoskeletal: Reports as per HPI Integumentary/Breasts: Skin/Breast: Reports system reviewed and no additional complaints, except as docu Neurologic: Reports system reviewed and no additional complaints, except as documented and Reports as per HPI Psychiatric: Psychiatric: Reports no additional psychiatric complaints PMFSH Past Medical History Medical History Anemia Anxiety Asthma Cervical spondylosis COVID-19 vaccine administered Elevated cholesterol History of MRSA infection HTN (hypertension) Hypothyroid Surgical History Surgical History H/O colonoscopy Social History Social History Are you a primary wild animal caretaker to a significant other at home: No Do you presently have visiting nurse or other home services: No Patient Tobacco Use Status: Former Tobacco user Quit Date: age 30 Tobacco use type: Cigarette Smoked in Last 30 Days: No Use of substances other than those prescribed or required for medical reasons: No Advance Directives: Yes Advance Directives on File: Yes Advance Directives Date on File: 03/09/21 Nutrition Risks: No Nutritional Risk Meds Allergies Allergy/AdvReac Type Severity Reaction Status Date / Time banana Allergy Intermediate lip Verified 05/21/21 13:50 swelling latex Allergy Intermediate lip Verified 05/21/21 13:50 swelling shellfish derived Allergy Intermediate lip Verified 05/21/21 13:50 swelling ibuprofen Allergy Unknown Verified 10/27/23 16:10 Active Medications: Current Medications Acetaminophen (Acetaminophen 325 Mg Tablet) 650 mg PO Q6H PRN PRN Reason: Pain, Mild (Pain Scale 1-3) Albuterol Sulfate (Albuterol Sulfate 90 Mcg 8 Gm Inhaler) 2 puff INHALE Q4H PRN PRN Reason: Wheezing Benzonatate (Benzonatate 100 Mg Capsule) 100 mg PO TID PRN PRN Reason: Cough Calcium Carbonate/Cholecalciferol (Calcium + Vitamin D 250 Mg Tablet) 500 mg PO DAILY [facility] Docusate Sodium (Docusate Sodium 100 Mg Capsule) 100 mg PO DAILY PRN PRN Reason: Constipation Fluticasone Propionate (Fluticasone Propionate Nasal 16 Gm [place]) 1 spray NOSTRIL-B DAILY PRN PRN Reason: Congestion Hydrochlorothiazide (Hydrochlorothiazide 25 Mg Tablet) 25 mg PO DAILY [facility] Levothyroxine Sodium (Levothyroxine Sodium 112 Mcg Tablet) 112 mcg PO DAILY@0600 [facility] Last Admin: 10/28/23 05:54 Dose: 112 mcg Loratadine (Loratadine 10 Mg Tablet) 10 mg PO DAILY [facility] Losartan Potassium (Losartan Potassium 50 Mg Tablet) 100 mg PO DAILY [facility] Melatonin (Melatonin 3 Mg Tablet) 6 mg PO BEDTIME PRN PRN Reason: Insomnia Last Admin: 10/28/23 01:51 Dose: 6 mg Montelukast Sodium (Montelukast Sodium 10 Mg Tablet) 10 mg PO BEDTIME [facility] Last Admin: 10/27/23 20:17 Dose: 10 mg Morphine Sulfate (Morphine Sulfate 4 Mg/Ml Cartridge) 4 mg IVPUSH Q4H PRN; Protocol PRN Reason: Pain, Severe (Pain Scale 7-10) Last Admin: 10/28/23 05:55 Dose: 4 mg Ondansetron HCl (Ondansetron Hcl 4 Mg/2 Ml Vial) 4 mg IVPUSH Q8H PRN PRN Reason: Nausea and Vomiting Last Admin: 10/28/23 05:55 Dose: 4 mg Pravastatin Sodium (Pravastatin Sodium 40 Mg Tablet) 40 mg PO DAILY [facility] Sodium Chloride (0.9 % Sodium Chloride Flush 3 Ml Syringe) 3 ml IVFLUSH QSHIFT [facility] Last Admin: 10/28/23 01:58 Dose: Not Given Home Medications Medication Instructions Recorded Confirmed Last Taken Type albuterol sulfate 90 mcg/actuation 2 puff inhalation Q4-6H PRN 03/02/21 10/27/23 Unknown History aerosol inhaler (ProAir HFA) Wheezing calcium carb-ergocalciferol (vit 1 tab PO DAILY 03/02/21 10/27/23 10/27/23 History D2) 600 mg calcium-200 unit tablet cetirizine 10 mg tablet 10 mg PO DAILY 03/02/21 10/27/23 10/27/23 History fluticasone propionate 50 1 spray intranasal DAILY PRN 03/02/21 10/27/23 Unknown History mcg/actuation nasal Congestion spray,suspension losartan 100 1 tab PO DAILY 03/02/21 10/27/23 10/27/23 History mg-hydrochlorothiazide 25 mg tablet montelukast 10 mg tablet 1 tab PO QPM 03/02/21 10/27/23 10/26/23 History pravastatin 40 mg tablet 1 tab PO DAILY 03/02/21 10/27/23 10/27/23 History acetaminophen 650 mg 1,300 mg PO DAILY 10/27/23 10/27/23 10/27/23 History tablet,extended release levothyroxine 112 mcg tablet 112 mcg PO DAILY 10/27/23 10/27/23 10/27/23 History Physical Exam 2 Vital Signs: Vital Signs: Last Vital Signs Temp 98.7 F 10/28/23 05:58 Pulse 82 10/28/23 05:58 Resp 16 10/28/23 05:58 BP 133/54 L 10/28/23 05:58 Pulse Ox 90 L 10/28/23 05:58 O2 Del Method Room Air 10/28/23 05:58 BMI result Body Mass Index 27.6 Const: General: cooperative, healthy appearing, no acute distress, well developed and alert HEENT: Head: Yes normal to inspection, Yes normocephalic and Yes atraumatic Mouth: moist mucous membranes Eyes: General: appearance normal, both eyes and all related structures EOM: EOMs intact bilaterally Chest: Other: no audible wheezing. Resp: Other: No audible wheezing Effort & Inspection: normal respiratory effort Cardio: Other: Radial pulse palpable with no rythmic abnormalities Back/Spine/Pelvis: Cervical Spine: normal cervical lordosis Skin: General skin exam: no rashes or lesions noted Neuro: General: no focal motor deficits Extrem: Other: SILT LLE DP+2 Pain with log roll Skin over left hip clean and dry Psych: Appearance: grossly normal and well kempt Mental Status: mental status grossly normal Speech and movement: Normal speech and movement present Affect: normal affect Attitude: cooperative Results Labs 10/28/23 05:21 10/28/23 05:21 Labs: Abnormal lab results 10/27/23 10/27/23 10/28/23 Range/Units 16:18 18:51 05:21 RBC 3.94 L 3.85 L (4.20-5.50) X10*6/uL Hgb 11.9 L 11.8 L (12.0-16.0) g/dl Hct 34.7 L 34.1 L (37.0-47.0) % Plt Count 141 L 128 L (160-400) X10*3/uL Immature Gran % (Auto) 0.7 H (0.0-0.4) % Abs Immat Gran (auto) 0.04 H (0.00-0.03) X10*3/uL Potassium 2.8 L* (3.3-5.1) mmol/L Anion Gap 9 L 11 L (12-20) Random Glucose 154 H (60-115) mg/dL Calcium 8.3 L (8.4-10.2) mg/dL Total Bilirubin 1.4 H (0.0-1.0) mg/dL AST 35 H (5-31) U/L Total Protein 6.2 L (6.5-8.0) g/dL Ur Leukocyte Esterase Trace H (Negative) H & H 10/27/23 10/28/23 Range/Units 16:18 05:21 Hgb 11.9 L 11.8 L (12.0-16.0) g/dl Hct 34.7 L 34.1 L (37.0-47.0) % Coagulation 10/27/23 Range/Units 16:18 INR 1.1 (0.9-1.1) All other labs normal. Diagnostic results Hip x-ray: image reviewed (There is a displaced left femoral neck fracture) Assessment and Plan (1) Left displaced femoral neck fracture: Status: Acute This is a 72 yo F with a displaced femoral neck fracture. She is alert and oriented and here with her daughter. I explained her injury and I recommend left hip hemiarthoplasty. I described the surgery and I discussed the risks, benefits and alternatives including but not limited to the risk of pain, infection, stiffness, fracture, dislocation and possible need for further surgery as well as potential medical complications such as blood clots, pulmonary embolism and cardiac complications. Patient agrees with the plan. She is being evaluated by medicine and cleared for surgery. NPO p midnight. Total time managing care of this patient today: 30 minutes. Procedures Date of Service Date of Service: 10/28/23
--- NOTE | 2023-10-28 07:16 | PC.NURSE ---
prior shift gave report to surgery, plan for patient to go at approx 0730.
--- NOTE | 2023-10-28 07:29 | P.CONAN_ITS ---
[facility] Active Problems Active Problems: All Active Problems (Updated 10/28/23 @ 06:41 by Lang Rodriguez MD) Left displaced femoral neck fracture (Acute) Closed hip fracture (Acute) Upper respiratory tract infection (Acute) Past Medical History Medical History Anemia Anxiety Asthma Cervical spondylosis COVID-19 vaccine administered Elevated cholesterol History of MRSA infection HTN (hypertension) Hypothyroid Family History Family history of problems with anesthesia: No Surgical History Surgical History H/O colonoscopy History of Problems with Anesthesia: No Social History Social History Are you a primary childcare administrator to a significant other at home: No Do you presently have visiting nurse or other home services: No Patient Tobacco Use Status: Former Tobacco user Quit Date: age 30 Tobacco use type: Cigarette Smoked in Last 30 Days: No Use of substances other than those prescribed or required for medical reasons: No Advance Directives: Yes Advance Directives on File: Yes Advance Directives Date on File: 03/09/21 Nutrition Risks: No Nutritional Risk Meds Allergies Allergy/AdvReac Type Severity Reaction Status Date / Time banana Allergy Intermediate lip Verified 05/21/21 13:50 swelling latex Allergy Intermediate lip Verified 05/21/21 13:50 swelling shellfish derived Allergy Intermediate lip Verified 05/21/21 13:50 swelling ibuprofen Allergy Unknown Verified 10/27/23 16:10 Active Medications: Current Medications Acetaminophen (Acetaminophen 325 Mg Tablet) 650 mg PO Q6H PRN PRN Reason: Pain, Mild (Pain Scale 1-3) Albuterol Sulfate (Albuterol Sulfate 90 Mcg 8 Gm Inhaler) 2 puff INHALE Q4H PRN PRN Reason: Wheezing Benzonatate (Benzonatate 100 Mg Capsule) 100 mg PO TID PRN PRN Reason: Cough Calcium Carbonate/Cholecalciferol (Calcium + Vitamin D 250 Mg Tablet) 500 mg PO DAILY [place] Docusate Sodium (Docusate Sodium 100 Mg Capsule) 100 mg PO DAILY PRN PRN Reason: Constipation Fentanyl (Fentanyl Citrate/Pf 100 Mcg/2 Ml Vial) 50 mcg IVPUSH Q5M PRN; Protocol PRN Reason: Pain, Severe (Pain Scale 7-10) Fluticasone Propionate (Fluticasone Propionate Nasal 16 Gm [place]) 1 spray NOSTRIL-B DAILY PRN PRN Reason: Congestion Hydrochlorothiazide (Hydrochlorothiazide 25 Mg Tablet) 25 mg PO DAILY [facility] Cefazolin Sodium/Dextrose (Ancef) 2 gm in 50 mls @ 100 mls/hr IV PREOP ONE Stop: 10/28/23 07:33 Levothyroxine Sodium (Levothyroxine Sodium 112 Mcg Tablet) 112 mcg PO DAILY@0600 [facility] Last Admin: 10/28/23 05:54 Dose: 112 mcg Loratadine (Loratadine 10 Mg Tablet) 10 mg PO DAILY [facility] Losartan Potassium (Losartan Potassium 50 Mg Tablet) 100 mg PO DAILY [facility] Melatonin (Melatonin 3 Mg Tablet) 6 mg PO BEDTIME PRN PRN Reason: Insomnia Last Admin: 10/28/23 01:51 Dose: 6 mg Montelukast Sodium (Montelukast Sodium 10 Mg Tablet) 10 mg PO BEDTIME [facility] Last Admin: 10/27/23 20:17 Dose: 10 mg Morphine Sulfate (Morphine Sulfate 4 Mg/Ml Cartridge) 4 mg IVPUSH Q4H PRN; Protocol PRN Reason: Pain, Severe (Pain Scale 7-10) Last Admin: 10/28/23 05:55 Dose: 4 mg Ondansetron HCl (Ondansetron Hcl 4 Mg/2 Ml Vial) 4 mg IVPUSH Q8H PRN PRN Reason: Nausea and Vomiting Last Admin: 10/28/23 05:55 Dose: 4 mg Ondansetron HCl (Ondansetron Hcl 4 Mg/2 Ml Vial) 4 mg IVPUSH ONCE PRN PRN Reason: Nausea and Vomiting Pravastatin Sodium (Pravastatin Sodium 40 Mg Tablet) 40 mg PO DAILY [facility] Sodium Chloride (0.9 % Sodium Chloride Flush 3 Ml Syringe) 3 ml IVFLUSH QSHIFT [facility] Last Admin: 10/28/23 01:58 Dose: Not Given Home Medications Medication Instructions Recorded Confirmed Last Taken Type albuterol sulfate 90 mcg/actuation 2 puff inhalation Q4-6H PRN 03/02/21 10/27/23 Unknown History aerosol inhaler (ProAir HFA) Wheezing calcium carb-ergocalciferol (vit 1 tab PO DAILY 03/02/21 10/27/23 10/27/23 History D2) 600 mg calcium-200 unit tablet cetirizine 10 mg tablet 10 mg PO DAILY 03/02/21 10/27/23 10/27/23 History fluticasone propionate 50 1 spray intranasal DAILY PRN 03/02/21 10/27/23 Unknown History mcg/actuation nasal Congestion spray,suspension losartan 100 1 tab PO DAILY 03/02/21 10/27/23 10/27/23 History mg-hydrochlorothiazide 25 mg tablet montelukast 10 mg tablet 1 tab PO QPM 03/02/21 10/27/23 10/26/23 History pravastatin 40 mg tablet 1 tab PO DAILY 03/02/21 10/27/23 10/27/23 History acetaminophen 650 mg 1,300 mg PO DAILY 10/27/23 10/27/23 10/27/23 History tablet,extended release levothyroxine 112 mcg tablet 112 mcg PO DAILY 10/27/23 10/27/23 10/27/23 History Exam Height,Weight and Vital Signs: Height 5 ft 6 in Weight 77.5 kg Last Vital Signs Temp 98.7 F 10/28/23 05:58 Pulse 82 10/28/23 05:58 Resp 16 10/28/23 05:58 BP 133/54 L 10/28/23 05:58 Pulse Ox 90 L 10/28/23 05:58 O2 Del Method Room Air 10/28/23 05:58 Pertinent Lab Results Pertinent Lab Results: Laboratory Tests 10/27/23 10/27/23 10/27/23 16:18 16:39 18:51 WBC 5.8 RBC 3.94 L Hgb 11.9 L Hct 34.7 L MCV 88.1 MCH 30.2 MCHC 34.3 RDW 12.6 Plt Count 141 L MPV 11.0 Immature Gran % (Auto) 0.7 H Neut % (Auto) 51.9 Lymph % (Auto) 38.4 [place] % (Auto) 7.1 Eos % (Auto) 1.4 Baso % (Auto) 0.5 Lymph # (Auto) 2.2 [place] # (Auto) 0.4 Eos # (Auto) 0.1 Baso # (Auto) 0.0 Abs Immat Gran (auto) 0.04 H Absolute Neuts (auto) 3.0 Absolute Nucleated RBC 0.000 Nucleated RBC % (auto) 0.0 PT 13.3 INR 1.1 Sodium 139 Potassium 2.8 L* Chloride 106 Carbon Dioxide 27 Anion Gap 9 L BUN 12 Creatinine 0.60 Estim Creat Clear Calc 86.4 Estimated GFR > 60 Random Glucose 154 H Calcium 8.3 L Total Bilirubin 1.4 H AST 35 H ALT 24 Alkaline Phosphatase 58 Troponin I High Sens < 2.7 Total Protein 6.2 L Albumin 3.7 Lipase 24 Urine Color Yellow Urine Appearance Cloudy Urine pH 6.0 Ur Specific [place] 1.015 Urine Protein Negative Urine Glucose (UA) Negative Urine Ketones Trace Urine Blood Negative Urine Nitrite Negative Ur Leukocyte Esterase Trace H Urine RBC 0-2 Urine WBC 0-5 Ur Squamous Epith Cells 0-2 Urine Bacteria 4+ Hyaline Casts 0-2 Blood Type A Positive Antibody Screen NEGATIVE 10/28/23 05:21 WBC 8.6 RBC 3.85 L Hgb 11.8 L Hct 34.1 L MCV 88.6 MCH 30.6 MCHC 34.6 RDW 12.7 Plt Count 128 L MPV 11.5 Immature Gran % (Auto) Neut % (Auto) Lymph % (Auto) [place] % (Auto) Eos % (Auto) Baso % (Auto) Lymph # (Auto) [place] # (Auto) Eos # (Auto) Baso # (Auto) Abs Immat Gran (auto) Absolute Neuts (auto) Absolute Nucleated RBC 0.000 Nucleated RBC % (auto) 0.0 PT INR Sodium 141 Potassium 4.2 D Chloride 108 Carbon Dioxide 26 Anion Gap 11 L BUN 13 Creatinine 0.66 Estim Creat Clear Calc 78.5 Estimated GFR > 60 Random Glucose 109 Calcium 8.7 Total Bilirubin AST ALT Alkaline Phosphatase Troponin I High Sens Total Protein Albumin Lipase Urine Color Urine Appearance Urine pH Ur Specific [place] Urine Protein Urine Glucose (UA) Urine Ketones Urine Blood Urine Nitrite Ur Leukocyte Esterase Urine RBC Urine WBC Ur Squamous Epith Cells Urine Bacteria Hyaline Casts Blood Type Antibody Screen Airway Mallampati Class: II TM Dist: >3cm Neck ROM: Full Assessment and Plan Assessment Anesthesia Assessment: Anesthesia Plan Discussed and Chart Reviewed Final Anesthetic Review Family History of Problems with Anesthesia: No History of Problems with Anesthesia: No NPO: Yes ASA Class: III and Emergency Final Preanesthetic Review: No Changes in Pt Med Stat, Meds/Allgs Chart Reviewed, Consent Obtained/Reviewed and Anes Risks/Benef Reviewed Patient Risk: Intermediate Procedure Risk: Intermediate Anesthetic Plan Anesthetic Plan: GA Disposition: Standard PACU
--- NOTE | 2023-10-28 08:23 | MHC.SHP ---
Pre-Procedural Eval Section A - 24 Hr Update-Section A only Date of Service: 10/28/23 The patient is an INPATIENT: Yes Changes since office visit: No Cold of Flu in the past 2 weeks, No New Medical Problems, No Changes in Medication and No Patient answered all questions The patient has been examined within 24 hours of the surgical procedure. The History & Physical has been completed within 30 days and I have reviewed it.: Yes Section B - Complete if H&P > 30 days Chief Complaint: Left hip fracture Allergies: Allergies Allergy/AdvReac Type Severity Reaction Status Date / Time banana Allergy Intermediate lip Verified 05/21/21 13:50 swelling latex Allergy Intermediate lip Verified 05/21/21 13:50 swelling shellfish derived Allergy Intermediate lip Verified 05/21/21 13:50 swelling ibuprofen Allergy Unknown Verified 10/27/23 16:10 Plan I have reviewed the history and physical and performed a pertinent physical examination on my patient. No changes have occurred unless specified. Time Spent With Patient Time: Total time managing care of this patient today ____ minutes.
--- NOTE | 2023-10-28 08:34 | PC.NURSE ---
Upper denture removed, Shoes, Bra and Lip gloss all given to daughter Velia.
--- NOTE | 2023-10-28 10:48 | P.BOP_ITS ---
Brief Operative Note Date of Service: 10/28/23 Pre-op diagnosis: Left femoral neck fracture Post-op diagnosis: same Procedure: Left hip EM Implants: [place] Accolade2#3 127deg with +0/44 bipolar Surgeon: Lang Rodriguez MD Anesthesia: GLMA and local Was an [employer] used for this Procedure?: No Estimated blood loss (mL): 200 IV fluids (mL): 800 Pathology: other Condition: stable Disposition: PACU
--- NOTE | 2023-10-28 10:49 | HO.PM.IMPN ---
Subjective Subjective Date of Service: 10/28/23 Interval History: Seen and evaluated Had surgery earlier, feels comfortable pain under fair control denies any SOB or dyspnea Review of Systems Review of Systems: Yes all other systems are reviewed and are negative Physical Exam Vital Signs: Vital Signs: Last Vital Signs Temp 98.1 F 10/28/23 10:03 Pulse 82 10/28/23 10:18 Resp 17 10/28/23 10:18 BP 140/62 H 10/28/23 10:18 Pulse Ox 95 10/28/23 10:18 O2 Del Method Room Air 10/28/23 10:18 O2 Flow Rate 6 10/28/23 10:13 BMI result Body Mass Index 27.6 Const: Other: Constitutional : Awake, interactive, not in distress Neck : Normal inspection, Supple Cardiovascular : RRR, no JVP, no lower extremity edema Respiratory : good bilateral air entry, no crackles, wheezes or rhonchi Gastrointestinal: soft, lax, Normal bowel sounds, Non tender Skin : Warm, Dry Skeletal: Left hip covered in dressing, no drainage or bleeding Neurological : Alert & oriented x3, No focal deficit Objective Data Active Medications Acetaminophen (Acetaminophen 325 Mg Tablet) 650 mg PO Q6H PRN PRN Reason: Pain, Mild (Pain Scale 1-3) Albuterol Sulfate (Albuterol Sulfate 90 Mcg 8 Gm Inhaler) 2 puff INHALE Q4H PRN PRN Reason: Wheezing Benzonatate (Benzonatate 100 Mg Capsule) 100 mg PO TID PRN PRN Reason: Cough Calcium Carbonate/Cholecalciferol (Calcium + Vitamin D 250 Mg Tablet) 500 mg PO DAILY [facility] Docusate Sodium (Docusate Sodium 100 Mg Capsule) 100 mg PO DAILY PRN PRN Reason: Constipation Fentanyl (Fentanyl Citrate/Pf 100 Mcg/2 Ml Vial) 50 mcg IVPUSH Q5M PRN; Protocol PRN Reason: Pain, Severe (Pain Scale 7-10) Fluticasone Propionate (Fluticasone Propionate Nasal 16 Gm [place]) 1 spray NOSTRIL-B DAILY PRN PRN Reason: Congestion Hydrochlorothiazide (Hydrochlorothiazide 25 Mg Tablet) 25 mg PO DAILY [facility] Levothyroxine Sodium (Levothyroxine Sodium 112 Mcg Tablet) 112 mcg PO DAILY@0600 [facility] Last Admin: 10/28/23 05:54 Dose: 112 mcg Documented By: ISSAC Loratadine (Loratadine 10 Mg Tablet) 10 mg PO DAILY [facility] Losartan Potassium (Losartan Potassium 50 Mg Tablet) 100 mg PO DAILY [facility] Melatonin (Melatonin 3 Mg Tablet) 6 mg PO BEDTIME PRN PRN Reason: Insomnia Last Admin: 10/28/23 01:51 Dose: 6 mg Documented By: ISSAC Montelukast Sodium (Montelukast Sodium 10 Mg Tablet) 10 mg PO BEDTIME [facility] Last Admin: 10/27/23 20:17 Dose: 10 mg Documented By: ISSAC Morphine Sulfate (Morphine Sulfate 4 Mg/Ml Cartridge) 4 mg IVPUSH Q4H PRN; Protocol PRN Reason: Pain, Severe (Pain Scale 7-10) Last Admin: 10/28/23 05:55 Dose: 4 mg Documented By: ISSAC Ondansetron HCl (Ondansetron Hcl 4 Mg/2 Ml Vial) 4 mg IVPUSH Q8H PRN PRN Reason: Nausea and Vomiting Last Admin: 10/28/23 05:55 Dose: 4 mg Documented By: ISSAC Ondansetron HCl (Ondansetron Hcl 4 Mg/2 Ml Vial) 4 mg IVPUSH ONCE PRN PRN Reason: Nausea and Vomiting Pravastatin Sodium (Pravastatin Sodium 40 Mg Tablet) 40 mg PO DAILY [facility] Sodium Chloride (0.9 % Sodium Chloride Flush 3 Ml Syringe) 3 ml IVFLUSH QSHIFT [facility] Last Admin: 10/28/23 08:19 Dose: Not Given Documented By: ULISES Non-Admin Reason: Off Unit: Surgery Labs 10/28/23 05:21 10/28/23 05:21 Labs: Laboratory Results - last 24 hr 10/27/23 10/27/23 10/27/23 16:18 16:39 18:51 MCV 88.1 MCH 30.2 MCHC 34.3 RDW 12.6 Plt Count 141 L MPV 11.0 Immature Gran % (Auto) 0.7 H Neut % (Auto) 51.9 Lymph % (Auto) 38.4 [place] % (Auto) 7.1 Eos % (Auto) 1.4 Baso % (Auto) 0.5 Lymph # (Auto) 2.2 [place] # (Auto) 0.4 Eos # (Auto) 0.1 Baso # (Auto) 0.0 Abs Immat Gran (auto) 0.04 H Absolute Neuts (auto) 3.0 Absolute Nucleated RBC 0.000 Nucleated RBC % (auto) 0.0 PT 13.3 INR 1.1 Anion Gap 9 L Estim Creat Clear Calc 86.4 Estimated GFR > 60 Random Glucose 154 H Calcium 8.3 L Total Bilirubin 1.4 H AST 35 H ALT 24 Alkaline Phosphatase 58 Troponin I High Sens < 2.7 Total Protein 6.2 L Albumin 3.7 Lipase 24 Urine Color Yellow Urine Appearance Cloudy Urine pH 6.0 Ur Specific [place] 1.015 Urine Protein Negative Urine Glucose (UA) Negative Urine Ketones Trace Urine Blood Negative Urine Nitrite Negative Ur Leukocyte Esterase Trace H Urine RBC 0-2 Urine WBC 0-5 Ur Squamous Epith Cells 0-2 Urine Bacteria 4+ Hyaline Casts 0-2 Blood Type A Positive Antibody Screen NEGATIVE 10/28/23 05:21 MCV 88.6 MCH 30.6 MCHC 34.6 RDW 12.7 Plt Count 128 L MPV 11.5 Immature Gran % (Auto) Neut % (Auto) Lymph % (Auto) [place] % (Auto) Eos % (Auto) Baso % (Auto) Lymph # (Auto) [place] # (Auto) Eos # (Auto) Baso # (Auto) Abs Immat Gran (auto) Absolute Neuts (auto) Absolute Nucleated RBC 0.000 Nucleated RBC % (auto) 0.0 PT INR Anion Gap 11 L Estim Creat Clear Calc 78.5 Estimated GFR > 60 Random Glucose 109 Calcium 8.7 Total Bilirubin AST ALT Alkaline Phosphatase Troponin I High Sens Total Protein Albumin Lipase Urine Color Urine Appearance Urine pH Ur Specific [place] Urine Protein Urine Glucose (UA) Urine Ketones Urine Blood Urine Nitrite Ur Leukocyte Esterase Urine RBC Urine WBC Ur Squamous Epith Cells Urine Bacteria Hyaline Casts Blood Type Antibody Screen Assessment and Plan (1) Left displaced femoral neck fracture: Status: Acute (2) Closed hip fracture: Status: Acute Plan Pt is a 72-year-old female with a PMH significant for?HTN, HLD, mild persistent asthma, and hypothyroidism who presents to the ED for evaluation after mechanical fall at home. Pt will be admitted to the hospital for treatment and further evaluation of acute left hip fracture. Left hip fracture POD 0 Ortho team will be following Pain management restart diet Pneumatic boots for DVT prophylaxis acute Hypokalemia corrected Follow BMP HTN Continue home meds HLD Continue statin Asthma Not in acute exacerbation Continue home inhalers Full Code DVT Prophylaxis: Pneumatic boots due to planned surgical procedure Pt will require a hospitalization overnight for treatment of?left hip fracture pending clinical improvement and PT evaluation Quality Stroke Does the patient have a stroke diagnosis?: No VTE Prior VTE?: No VTE Risk Level:: Medical - moderate - high VTE Device Contraindication: N/A - Device Ordered VTE Drug Contraindication: Treatment Not Indicated
[2023-10-28] MEDS: Losartan Potassium 50 MG TABLET 100 MG PO (11:58)
[2023-10-28] MEDS: hydroCHLOROthiazide 25 MG TABLET PO (11:58)
[2023-10-28] MEDS: Loratadine 10 MG TABLET PO (11:58)
[2023-10-28] MEDS: Calcium + Vitamin D 250 MG TABLET 500 MG PO (11:58)
[2023-10-28] MEDS: Pravastatin Sodium 40 MG TABLET PO (11:58)
[2023-10-28] MEDS: 0.9 % Sodium Chloride Flush 3 ML SYRINGE IVFLUSH ×2 (11:58→20:56)
--- NOTE | 2023-10-28 12:17 | PC.NURSE ---
F/C Noted upon admission s/p L Hip Repair.
--- NOTE | 2023-10-28 13:26 | MHC.CLN ---
NUTRITION CONSULT FOR REPORTED WEIGHT LOSS. 2-13# WEIGHT LOSS REPORTED WITHOUT DECREASE IN APPETITE. 10/27 WEIGHT=80.4 KG; 10/26 WEIGHT=77.5 KG. PRIOR WEIGHT 05/21/21=78 KG. CURRENT WEIGHT APPEARS TO BE IN USUAL WEIGHT RANGE. PATIENT WITH SURGERY TODAY. RD TO MONITOR PO INTAKE.
--- NOTE | 2023-10-28 14:23 | MHC.CM.PN ---
Addendum entered by Ronna Haley RN 10/28/23 14:27: IMM DELIVERED. Original Note: CM MET WITH PATIENT AND SON MANDY AT BEDSIDE. PT GIVES VERBAL CONSENT TO SPEAK WITH SON. PATIENT IS FROM HOME ALONE, FAMILY LIVES NEARBY AND PROVIDES SUPPORT NEEDED. FUNCTIONALLY INDEPENDENT. DENIES USE OF DME OR SERVICES. PCP: PETER ALEMAN MD HCP: PATIENT COMPLETED UPDATED HCP NAMING AGENTS 1) DAUGHTER CRISTHIAN [phone], 2) DAUGHTER IN LAW AMBER [phone] DP: PENDING PT EVAL. GOAL IS REHAB. CHOICES ARE 1) [facility] AND 2) [facility]. REVIEWED STR VS ACUTE REHAB. PATIENT'S SON WILL PROVIDE BACK UP CHOICES AFTER SPEAKING W/ FAMILY. CM WILL CONTINUE TO FOLLOW.
--- NOTE | 2023-10-28 17:01 | PC.NURSE ---
F/C Leaking at this time, PA okay to D/C
--- NOTE | 2023-10-28 17:03 | P.OP_ITS ---
Operative Note Operative Note Date of Service: 10/28/23 Narrative: Date of Service: 10/28/23 Pre-op diagnosis: Left femoral neck fracture Post-op diagnosis: same Procedure: Left hip EM Implants: [place] Accolade2#3 127deg with +0/44 bipolar Surgeon: Lang Rodriguez MD Anesthesia: GLMA and local Was an Gasoline Plant Operator used for this Procedure?: No Estimated blood loss (mL): 200 IV fluids (mL): 800 Pathology: other Condition: stable Disposition: PACU Procedure in detail: Patient was brought to the operative room placed in the lateral decubitus position. All bony prominences were well padded and the was prepped and draped in standard sterile fashion. IV antibiotics per weight were administered and a time-out was called to identify proper site proper procedure proper surgeon. Radiographs were available and confirmed. TXA was administered. I began by making a curvilinear incision over the posterolateral aspect of the greater trochanter. Dissection was taken down to the tensor fascia which was incised in line with the incision and a Charnley retractor was placed. The hip was internally rotated and the external rotators were identified. All vessels in the area were cauterized and a full-thickness capsular/external rotator layer was developed in a hockey-stick fashion starting just proximal to the piriformis. This layer was tagged and the displaced femoral neck fracture was identified. Clean-up cuts was performed while protecxtion the posterolateral soft tissues and the head was removed and measured (44 mm) on the back table. I then copiously irrigated the acetabulum and removed all bony fragments. Once this was done I used a cookie cutter to lateralize and a Charnley awl to identify the canal and then sequentially broached up to a 127 deg #3. I then trialed with a standard head and a bipolar component matching the femoral head size. I was satisfied with the range of motion and stability and length. Therefore I removed all instrumentation and copiously irrigated. I then placed my final femoral implant and then retrialed. I was satisfied with the +0/44 implant. My final bipolar components were then placed. I closed the capsular layer with FiberWire and irrigated copiously. I performed a layered closure with dudley on skin. The patient was placed in sterile dressing extubated brought to recovery room in stable condition there were no known complications.
[2023-10-28] MEDS: Montelukast Sodium 10 MG TABLET PO (20:54)
--- NOTE | 2023-10-29 02:56 | PC.NURSE ---
Patient due to void #2 complete. Patient was incontinent large amount of urine. She did have purewick in place, but was found without suction turned on.DTV#3 should be by 1366.
[2023-10-29 03:47] VITALS: BP 134/62; PULSE 87; RESP 18; TEMP 36.9; O2SAT 94
[2023-10-29 05:43] LABS: Hematocrit 34.7 % (37.0-47.0); Hemoglobin 11.9 g/dl (12.0-16.0); Mean Corpuscular HGB Conc 34.3 g/dl (31.0-35.0); Mean Corpuscular Hemoglobin 30.6 pg (27.0-33.0); Mean Corpuscular Volume 89.2 fL (80.0-98.0); Platelet Count 134 X10*3/uL (160-400); Red Blood Count 3.89 X10*6/uL (4.20-5.50); Red Cell Distribution Width 12.8 % (11.0-16.0)
[2023-10-29 05:54] LABS: Anion Gap 12 (12-20); Blood Urea Nitrogen 11 mg/dL (9-16); Calcium 8.9 mg/dL (8.4-10.2); Carbon Dioxide 26 mmol/L (22-29); Chloride 102 mmol/L (96-108); Creatinine Clr Calc Pharmacy 81.2; Estimated Glomerular Filt Rate > 60; Glucose Random 154 mg/dL (60-115); Potassium 3.7 mmol/L (3.3-5.1); Sodium 136 mmol/L (135-145)
[2023-10-29] MEDS: Levothyroxine Sodium 112 MCG TABLET PO (06:42)
[2023-10-29 07:46] VITALS: BP 130/61; PULSE 89; RESP 16; TEMP 36.5; O2SAT 97
[2023-10-29 09:37] VITALS: BP 130/61; PULSE 89; O2SAT 97
[2023-10-29] MEDS: 0.9 % Sodium Chloride Flush 3 ML SYRINGE IVFLUSH ×2 (09:39→19:35)
[2023-10-29] MEDS: hydroCHLOROthiazide 25 MG TABLET PO (09:40)
[2023-10-29] MEDS: Pravastatin Sodium 40 MG TABLET PO (09:40)
[2023-10-29] MEDS: Calcium + Vitamin D 250 MG TABLET 500 MG PO (09:40)
[2023-10-29] MEDS: Losartan Potassium 50 MG TABLET 100 MG PO (09:40)
[2023-10-29] MEDS: Loratadine 10 MG TABLET PO (09:40)
[2023-10-29] MEDS: Enoxaparin Sodium 40 MG/0.4 ML SYRINGE SUBCUT (09:41)
--- NOTE | 2023-10-29 10:18 | HO.PM.IMPN ---
Subjective Subjective Date of Service: 10/29/23 Interval History: Seen and evaluated POD 1 pain under fair control to start Therapy denies any SOB or dyspnea Review of Systems Review of Systems: Yes all other systems are reviewed and are negative Physical Exam Vital Signs: Vital Signs: Last Vital Signs Temp 97.7 F 10/29/23 07:46 Pulse 89 10/29/23 09:37 Resp 16 10/29/23 07:46 BP 130/61 10/29/23 09:37 Pulse Ox 97 10/29/23 09:37 O2 Del Method Room Air 10/29/23 07:46 O2 Flow Rate 2 10/28/23 11:03 BMI result Body Mass Index 28.6 Const: Other: Constitutional : Awake, interactive, not in distress Neck : Normal inspection, Supple Cardiovascular : RRR, no JVP, no lower extremity edema Respiratory : good bilateral air entry, no crackles, wheezes or rhonchi Gastrointestinal: soft, lax, Normal bowel sounds, Non tender Skin : Warm, Dry Skeletal: Left hip covered in dressing, no drainage or bleeding Neurological : Alert & oriented x3, No focal deficit Objective Data Active Medications Acetaminophen (Acetaminophen 325 Mg Tablet) 650 mg PO Q6H PRN PRN Reason: Pain, Mild (Pain Scale 1-3) Albuterol Sulfate (Albuterol Sulfate 90 Mcg 8 Gm Inhaler) 2 puff INHALE Q4H PRN PRN Reason: Wheezing Benzonatate (Benzonatate 100 Mg Capsule) 100 mg PO TID PRN PRN Reason: Cough Calcium Carbonate/Cholecalciferol (Calcium + Vitamin D 250 Mg Tablet) 500 mg PO DAILY [facility] Last Admin: 10/29/23 09:40 Dose: 500 mg Documented By: HENRY Docusate Sodium (Docusate Sodium 100 Mg Capsule) 100 mg PO DAILY PRN PRN Reason: Constipation Enoxaparin Sodium (Enoxaparin Sodium 40 Mg/0.4 Ml Syringe) 40 mg SUBCUT Q24H [facility] Last Admin: 10/29/23 09:41 Dose: 40 mg Documented By: HENRY Fentanyl (Fentanyl Citrate/Pf 100 Mcg/2 Ml Vial) 50 mcg IVPUSH Q5M PRN; Protocol PRN Reason: Pain, Severe (Pain Scale 7-10) Fluticasone Propionate (Fluticasone Propionate Nasal 16 Gm Glennie) 1 spray NOSTRIL-B DAILY PRN PRN Reason: Congestion Hydrochlorothiazide (Hydrochlorothiazide 25 Mg Tablet) 25 mg PO DAILY [facility] Last Admin: 10/29/23 09:40 Dose: 25 mg Documented By: HENRY Levothyroxine Sodium (Levothyroxine Sodium 112 Mcg Tablet) 112 mcg PO DAILY@0600 [facility] Last Admin: 10/29/23 06:42 Dose: 112 mcg Documented By: GARCÍA Loratadine (Loratadine 10 Mg Tablet) 10 mg PO DAILY [facility] Last Admin: 10/29/23 09:40 Dose: 10 mg Documented By: HENRY Losartan Potassium (Losartan Potassium 50 Mg Tablet) 100 mg PO DAILY [facility] Last Admin: 10/29/23 09:40 Dose: 100 mg Documented By: HENRY Melatonin (Melatonin 3 Mg Tablet) 6 mg PO BEDTIME PRN PRN Reason: Insomnia Last Admin: 10/28/23 20:54 Dose: 6 mg Documented By: JACK Montelukast Sodium (Montelukast Sodium 10 Mg Tablet) 10 mg PO BEDTIME [facility] Last Admin: 10/28/23 20:54 Dose: 10 mg Documented By: JACK Morphine Sulfate (Morphine Sulfate 4 Mg/Ml Cartridge) 4 mg IVPUSH Q4H PRN; Protocol PRN Reason: Pain, Severe (Pain Scale 7-10) Last Admin: 10/28/23 17:17 Dose: 4 mg Documented By: ULISES Ondansetron HCl (Ondansetron Hcl 4 Mg/2 Ml Vial) 4 mg IVPUSH Q8H PRN PRN Reason: Nausea and Vomiting Last Admin: 10/28/23 14:20 Dose: 4 mg Documented By: RORY Ondansetron HCl (Ondansetron Hcl 4 Mg/2 Ml Vial) 4 mg IVPUSH ONCE PRN PRN Reason: Nausea and Vomiting Oxycodone HCl (Oxycodone Hcl Immed Release 5 Mg Tablet) 5 mg PO Q4H PRN PRN Reason: Pain, Severe (Pain Scale 7-10) Pravastatin Sodium (Pravastatin Sodium 40 Mg Tablet) 40 mg PO DAILY [facility] Last Admin: 10/29/23 09:40 Dose: 40 mg Documented By: HENRY Sodium Chloride (0.9 % Sodium Chloride Flush 3 Ml Syringe) 3 ml IVFLUSH QSHIFT [facility] Last Admin: 10/29/23 09:39 Dose: 3 ml Documented By: HENRY Labs 10/29/23 05:29 10/29/23 05:29 Labs: Laboratory Results - last 24 hr 10/29/23 05:29 MCV 89.2 MCH 30.6 MCHC 34.3 RDW 12.8 Plt Count 134 L MPV 11.0 Absolute Nucleated RBC 0.000 Nucleated RBC % (auto) 0.0 Anion Gap 12 Estim Creat Clear Calc 81.2 Estimated GFR > 60 Random Glucose 154 H Calcium 8.9 Assessment and Plan (1) Left displaced femoral neck fracture: Status: Acute (2) Closed hip fracture: Status: Acute Plan Pt is a 72-year-old female with a PMH significant for?HTN, HLD, mild persistent asthma, and hypothyroidism who presents to the ED for evaluation after mechanical fall at home. Pt will be admitted to the hospital for treatment and further evaluation of acute left hip fracture. Left hip fracture POD 1 Ortho team following Pain management restart diet Lovenox for DVT prophylaxis Start PT acute Hypokalemia corrected Follow BMP HTN Continue home meds HLD Continue statin Asthma Not in acute exacerbation Continue home inhalers Full Code DVT Prophylaxis: Pneumatic boots due to planned surgical procedure Pt will require a hospitalization overnight for treatment of?left hip fracture pending clinical improvement and PT evaluation Quality Stroke Does the patient have a stroke diagnosis?: No VTE Prior VTE?: No VTE Risk Level:: Medical - moderate - high VTE Device Contraindication: N/A - Device Ordered VTE Drug Contraindication: Treatment Not Indicated
[2023-10-29] MEDS: Morphine Sulfate 4 MG/ML CARTRIDGE IVPUSH (10:35)
--- NOTE | 2023-10-29 11:15 | PM.PNORT ---
Subjective Subjective Date of Service: 10/29/23 Interval history: POD 1 s/p Left hip hemiarthroplasty no overnight events has worked with PT without complications doris sob, cp, palpitations Physical Exam Vital Signs: Vital Signs: Last Vital Signs Temp 97.7 F 10/29/23 07:46 Pulse 89 10/29/23 09:37 Resp 16 10/29/23 07:46 BP 130/61 10/29/23 09:37 Pulse Ox 97 10/29/23 09:37 O2 Del Method Room Air 10/29/23 07:46 O2 Flow Rate 2 10/28/23 11:03 BMI result Body Mass Index 28.6 Const: General: cooperative, healthy appearing and no acute distress Resp: Effort & Inspection: normal respiratory effort and able to speak in complete sentences Cardio: Rate: regular rate Peripheral pulses: Peripheral pulses 2+ throughout GI: Palpation (GI): Soft to palpation Skin: General skin exam: no rashes or lesions noted Extrem: Other: incision clean dry and intact. Mahogany intact. No erythema or effusion. Calf supple nontender. Neurovascularly intact. Procedures Date of Service Date of Service: 10/29/23 Progress Note: A&P Assessment and plan (1) S/P hip hemiarthroplasty: Status: Acute Assessment and Plan: pain mgmnt lovenox for dvt ppx x 6 weeks pt/ot wbat posterior precautions dispo-acute rehab per PT eval when medically cleared fu orthopedics in 2 weeks Time Spent With Patient Time: Total time managing care of this patient today ____ minutes. Quality Stroke Does the patient have a stroke diagnosis?: No VTE Prior VTE?: No VTE Risk Level:: Medical - moderate - high VTE Device Contraindication: N/A - Device Ordered VTE Drug Contraindication: Treatment Not Indicated
[2023-10-29] MEDS: oxyCODONE HCl Immed Release 5 MG TABLET PO ×2 (14:41→19:35)
[2023-10-29] MEDS: Acetaminophen 325 MG TABLET 650 MG PO (14:41)
[2023-10-29 15:30] VITALS: BP 126/57; PULSE 85; RESP 18; TEMP 37.6; O2SAT 95
[2023-10-29 19:23] VITALS: BP 126/59; PULSE 82; RESP 18; TEMP 37; O2SAT 97
[2023-10-29] MEDS: Montelukast Sodium 10 MG TABLET PO (19:35)
[2023-10-29] MEDS: Docusate Sodium 100 MG CAPSULE PO (19:45)
--- NOTE | 2023-10-29 19:47 | HO.POSTANES ---
Post Anesthesia Evaluation Post Anesthesia Evaluation Date of Service: 10/29/23 Vital Signs: Vital Signs Temp Pulse Resp BP Pulse Ox O2 Del Method 10/29/23 19:23 98.6 F 82 18 126/59 L 97 Room Air 10/29/23 15:30 99.6 F 85 18 126/57 L 95 Room Air 10/29/23 09:37 89 130/61 97 Anesthesia: General LMA Mental Status: Awake Pain Control: Satisfactory Nausea/Vomiting: None Hydration: Adequate Anesthesia-Related Issues: No Anes. Related Issues
[2023-10-30] MEDS: oxyCODONE HCl Immed Release 5 MG TABLET PO ×3 (01:48→12:37)
[2023-10-30] MEDS: Acetaminophen 325 MG TABLET 650 MG PO ×2 (01:49→08:14)
[2023-10-30 03:16] VITALS: BP 152/66; PULSE 90; RESP 18; TEMP 37.6; O2SAT 96
[2023-10-30] MEDS: Morphine Sulfate 4 MG/ML CARTRIDGE IVPUSH (05:22)
[2023-10-30] MEDS: Levothyroxine Sodium 112 MCG TABLET PO (05:47)
--- NOTE | 2023-10-30 06:03 | PC.NURSE ---
Patient expressed urgency for BM, earlier given Colace but no effect yet. Helped OOB to bedside commode with a walker. Difficulty with transfer despite morphine prior to ambulation.
[2023-10-30 07:00] VITALS: O2SAT 95
[2023-10-30 07:09] VITALS: BP 131/67; PULSE 89; RESP 14; TEMP 36.6; O2SAT 95
[2023-10-30] MEDS: 0.9 % Sodium Chloride Flush 3 ML SYRINGE IVFLUSH (08:13)
[2023-10-30] MEDS: Calcium + Vitamin D 250 MG TABLET 500 MG PO (08:14)
[2023-10-30] MEDS: Losartan Potassium 50 MG TABLET 100 MG PO (08:15)
[2023-10-30] MEDS: Pravastatin Sodium 40 MG TABLET PO (08:15)
[2023-10-30] MEDS: Loratadine 10 MG TABLET PO (08:15)
[2023-10-30] MEDS: hydroCHLOROthiazide 25 MG TABLET PO (08:15)
[2023-10-30] MEDS: Enoxaparin Sodium 40 MG/0.4 ML SYRINGE SUBCUT (09:39)
--- NOTE | 2023-10-30 10:57 | PM.DS ---
DS: Providers Provider Date of Service: 10/30/23 Date of admission: 10/27/23 19:05 Primary care physician: Izaiah Beasley MD Consults: 10/27/23 18:15 Consult to Physician Stat Consulting Provider: Lang Rodriguez Reason for consultation: acute left hip fracture Has provider been notified: Yes 10/27/23 19:15 Consult to Orthopedics Routine Consulting Provider: [facility] [place] [facility] Reason for consultation: Left hip fracture Has provider been notified: Yes DS: Diagnosis Discharge Diagnosis (1) S/P hip hemiarthroplasty: Status: Acute (2) Closed hip fracture: Status: Acute DS: Summary Hospital Course Hospital Course: Admission note HPI Pt is a 72-year-old female with a PMH significant for?HTN, HLD, mild persistent asthma, and hypothyroidism who presents to the ED for evaluation after mechanical fall at home. Patient was at daughter's home talking to her in the kitchen when she tripped over a bag on the floor and landed on her left hip on the ceramic tile floor. Head apparently struck refrigerator. Fall was witnessed by patient's daughter. Patient immediately complained of 10/10 left hip pain and was unable to stand or bear weight on left leg. Denies loss of consciousness. No lightheadedness or dizziness. Patient seen and examined in room where she is resting comfortably in bed. Reports still feeling a dull ache in left hip, though pain overall well managed. Reports feeling ?a little? numbness and tingling in left leg. Experienced one episode nausea and vomiting earlier in the day. Denies fever, chills, abdominal pain. No shortness of breath. Denies cough. No chest pain/pressure, palpitations. In the ED pt was slightly hypertensive up to 145/72, vitals otherwise WNL. Labs were significant for potassium of 2.8, bilirubin 1.4, and AST 35. No leukocytosis. Renal function baseline. Troponins negative. UA negative for UTI. Hip and pelvis x-ray found subcapital left neck femoral fracture with likely mild impaction and posterior angulation. CXR showed no acute cardiopulmonary disease. CT?of head found no acute intracranial abnormality. CT of cervical spine found no acute fracture or traumatic malalignment, but did show advanced multilevel degenerative disc disease. EKG demonstrated normal sinus rhythm without evidence of significant acute ischemia. Pt was treated with fentanyl, metoclopramide, ondansetron, and potassium chloride. Pt will be admitted to the hospital for treatment and further evaluation of acute left hip fracture. Hospital course The patient was admitted for close Left hip fracture and went for Hemiarthroplasty with good result as she was able to participate in physical therapy session with good pain tolerance. On Oxycodone as needed for pain. Lovenox for 6 weeks for DVT PPx. Noticed to have acute Hypokalemia on presentation. resolved after replacement. - Follow with Orthopedics in 2 weeks - Oxycodone as needed for pain - Lovenox daily for 6 weeks - Increase physical activity as tolerated Time Attestation Discharge Coordination Time (in mins): 40 Quality: Safe Use of Opioids Does Pt have an Active Cancer Diagnosis on the Problem List?: No Quality: Stroke Does the patient have a stroke diagnosis?: No Physical Exam Vital Signs: Vital Signs: Last Vital Signs Temp 97.8 F 10/30/23 07:09 Pulse 89 10/30/23 07:09 Resp 14 10/30/23 07:09 BP 131/67 10/30/23 07:09 Pulse Ox 95 10/30/23 07:09 O2 Del Method Room Air 10/30/23 07:09 O2 Flow Rate 2 10/28/23 11:03 BMI result Body Mass Index 28.6 Const: Other: Constitutional : Awake, interactive, not in distress Neck : Normal inspection, Supple Cardiovascular : RRR, no JVP, no lower extremity edema Respiratory : good bilateral air entry, no crackles, wheezes or rhonchi Gastrointestinal: soft, lax, Normal bowel sounds, Non tender Skin : Warm, Dry Skeletal: Left hip covered in dressing, no drainage or bleeding Neurological : Alert & oriented x3, No focal deficit DS: Data Data Completed and Pending Pending studies at discharge: Pending at discharge 10/28/23 09:35 Surgical [PTH] Routine Imaging Chest x-ray: Radiologist's impression: ITS Impressions Cervical Spine CT 10/27/23 17:12 IMPRESSION: 1. No acute intracranial abnormality. 2. No cervical spine fracture or traumatic malalignment. 3. Advanced multilevel degenerative disc disease in the cervical spine with multilevel severe neural foraminal narrowing. Head CT 10/27/23 17:12 IMPRESSION: 1. No acute intracranial abnormality. 2. No cervical spine fracture or traumatic malalignment. 3. Advanced multilevel degenerative disc disease in the cervical spine with multilevel severe neural foraminal narrowing. Chest X-Ray 10/27/23 17:55 IMPRESSION: No acute cardiopulmonary disease. Hip/Pelvis X-Ray 10/27/23 17:55 IMPRESSION: Subcapital left neck femoral fracture with likely mild impaction and posterior angulation. There is foreshortening of the neck. Mild soft tissue swelling. Discharge Plan Discharge Anticipated Discharge Date/Time: 10/30/23 10:47 Patient Disposition: [facility] Discharge Diagnosis: Hip fracture Referrals: Izaiah Beasley MD [Primary Care Provider] - 1 Week Discharge Medications: New oxycodone 5 mg Tablet 5 mg PO Q4H PRN (Reason: Pain, Severe (Pain Scale 7-10)) Qty: 20 0RF Rx Instructions: Partial Fill upon patient request. enoxaparin 40 mg/0.4 mL Syringe 40 mg subcut Q24H 41 Days Qty: 16.4 0RF Continued cetirizine 10 mg Tablet 10 mg PO DAILY pravastatin 40 mg tablet 1 tab PO DAILY losartan-hydrochlorothiazide 100-25 mg tablet 1 tab PO DAILY montelukast 10 mg tablet 1 tab PO QPM calcium carbonate-vitamin D2 600 mg calcium- 200 unit Tablet 1 tab PO DAILY albuterol sulfate [ProAir HFA] 90 mcg/actuation Hfa Aerosol Inhaler 2 puff INHALATION Q4-6H PRN (Reason: Wheezing) fluticasone propionate 50 mcg/actuation [place],Suspension 1 spray INTRANASAL DAILY PRN (Reason: Congestion) levothyroxine 112 mcg tablet 112 mcg PO DAILY acetaminophen 650 mg Tablet Extended Release 1,300 mg PO DAILY Discharge Orders: Discharge Order (Routine); Ordered 10/30/23 Ordered By: Caleb Groves Diet: Advance to usual diet Activity on Discharge: As tolerated Stand Alone Forms: Patient Portal Discharge page Care Plan Goals: Read below Health Concerns: Read below Plan of Treatment: Read below Assessment: - Follow with Orthopedics in 2 weeks - Oxycodone as needed for pain - Lovenox daily for 6 weeks - Increase physical activity as tolerated
--- NOTE | 2023-10-30 11:15 | MHC.CM.PN ---
Addendum entered by Corrine Last 10/30/23 15:03: DCS SENT TO [facility] VIA [facility] Original Note: PT WILL DC TO [facility] TODAY VIA [facility] AT 1500 PT AND SON AWARE AND IN AGREEMENT
--- NOTE | 2023-10-30 11:44 | PC.NURSE ---
Pt for discharge to [facility] . Nursing report called to Franklin Karimi pt to be transported via S ETA 1500
--- NOTE | 2023-10-30 13:03 | P.PNOP_ITS ---
Subjective Subjective Date of Service: 10/30/23 Interval history: POD 2 s/p Left hip hemiarthroplasty no overnight events resting in recliner feels she is moving better doris sob, cp, palpitations Physical Exam Vital Signs: Vital Signs: Last Vital Signs Temp 97.8 F 10/30/23 07:09 Pulse 89 10/30/23 07:09 Resp 14 10/30/23 07:09 BP 131/67 10/30/23 07:09 Pulse Ox 95 10/30/23 07:09 O2 Del Method Room Air 10/30/23 07:09 O2 Flow Rate 2 10/28/23 11:03 BMI result Body Mass Index 28.6 Const: General: cooperative, healthy appearing and no acute distress Resp: Effort & Inspection: normal respiratory effort and able to speak in complete sentences Cardio: Rate: regular rate Peripheral pulses: Peripheral pulses 2+ throughout GI: Palpation (GI): Soft to palpation Skin: General skin exam: no rashes or lesions noted Extrem: Other: incision clean dry and intact. [place] intact. No erythema or effusion. Calf supple nontender. Neurovascularly intact. Procedures Date of Service Date of Service: 10/30/23 Progress Note: A&P Assessment and plan (1) S/P hip hemiarthroplasty: Status: Acute Assessment and Plan: pain mgmnt lovenox for dvt ppx x 6 weeks pt/ot wbat posterior precautions dispo-acute rehab per PT eval when medically cleared fu orthopedics in 2 weeks Time Spent With Patient Time: Total time managing care of this patient today ____ minutes. Quality Stroke Does the patient have a stroke diagnosis?: No VTE Prior VTE?: No VTE Risk Level:: Medical - moderate - high VTE Device Contraindication: N/A - Device Ordered VTE Drug Contraindication: Treatment Not Indicated
== END 2023-10-30 15:23 | disposition skilled nursing facility (03) | DRG 522 ==
LOC: HO.ED 18:20 → HO.EDOVER 19:36 → HO.S3 10-28 07:10
PROVIDERS: Orthopaedic Surgery; Physician Assistant; Admitting Provider Student in an Organized Health Care Education/Training Program; Emergency Provider Emergency Medicine; PCP Internal Medicine; Visit Provider Student in an Organized Health Care Education/Training Program
PROC: 0SRS0JA Replacement of Left Hip Joint, Femoral Surface with Synthetic Substitute, Uncemented, Open Approach (ICD-10-PCS; CPT 27125; principal; 2023-10-28 08:30)
DX: S72.012A Unspecified intracapsular fracture of left femur, initial encounter for closed fracture (principal); I10 Essential (primary) hypertension; E87.6 Hypokalemia; E78.5 Hyperlipidemia, unspecified; J45.909 Unspecified asthma, uncomplicated; E06.3 Autoimmune thyroiditis; W01.0XXA Fall on same level from slipping, tripping and stumbling without subsequent striking against object, initial encounter; Z87.891 Personal history of nicotine dependence; Z79.890 Hormone replacement therapy; Z79.899 Other long term (current) drug therapy
CPT/HCPCS: 36415; 70450; 71045; 72125; 72170; 73502; 80048; 80053; 81001; 83690; 84484; 85025; 85027; 85610; 86850; 86900; 86901; 88305; 88311; 93005; 97162; 99285; C1776; J0131; J0690; J1650; J2250; J2270; J2405; J2704; J2765; J2795; J3010

== ENCOUNTER → 2023-10-27 16:09 | Outpatient (BNV) | payer MEDICARE, BC, SELFPAY | PROVIDERS: Admitting Provider Student in an Organized Health Care Education/Training Program; Emergency Provider Emergency Medicine; PCP Internal Medicine; Visit Provider Internal Medicine Cardiovascular Disease | DX: R94.31 Abnormal electrocardiogram [ECG] [EKG] (principal) | CPT/HCPCS: 93010 ==

== ENCOUNTER → 2023-10-27 19:05 | Outpatient (BNV) | payer MEDICARE, BC, SELFPAY | PROVIDERS: Admitting Provider Student in an Organized Health Care Education/Training Program; Emergency Provider Emergency Medicine; PCP Internal Medicine; Visit Provider Orthopaedic Surgery | DX: Z96.649 Presence of unspecified artificial hip joint (principal) | CPT/HCPCS: 27236; 99024; 99222 ==

== ENCOUNTER → 2023-10-27 19:05 | Outpatient (BNV) | payer MEDICARE, BC, SELFPAY | PROVIDERS: Admitting Provider Student in an Organized Health Care Education/Training Program; Emergency Provider Emergency Medicine; PCP Internal Medicine; Visit Provider Student in an Organized Health Care Education/Training Program | DX: S72.002A Fracture of unspecified part of neck of left femur, initial encounter for closed fracture (principal); Z96.649 Presence of unspecified artificial hip joint | CPT/HCPCS: 99223; 99232; 99239 ==

== ENCOUNTER 2023-11-09 05:51 | Outpatient (REF) | payer MEDICARE, BC, SELFPAY ==
--- NOTE | ~2023-11-09 | XR_ITS ---
EXAMINATION: XR HIP, LEFT CLINICAL INFORMATION: Pain in unspecified hip. COMPARISON: 10/28/2023 pelvis. 10/27/2023 left hip. TECHNIQUE: AP view of the pelvis and 3 views of the left hip. FINDINGS: Degenerative changes in the imaged lower lumbar spine. Mild degenerative changes in the bilateral sacroiliac joints. Mild degenerative changes in the right hip. Redemonstration of left total hip prosthesis. Hardware appears intact. Surgical dudley along the superolateral femoral head aspect of the left hip. Mild lucency between the superolateral aspect of the femoral head component of the prosthesis and the subjacent acetabulum. XR/XR hip LT min 2V IMPRESSION: 1. Redemonstration of left total hip prosthesis. Hardware appears intact. 2. Mild lucency between the superolateral aspect of the femoral head component of the prosthesis and the subjacent acetabulum. This study was presented today November 22, 2023 for interpretation. Prompt priority results supplied at this time to the referring provider as requested by the provider.
== END 2023-11-09 05:52 | disposition home or self-care (01) ==
LOC: HO.HOSX 05:51
PROVIDERS: Visit Provider Physician Assistant
DX: M25.552 Pain in left hip (principal); S72.002A Fracture of unspecified part of neck of left femur, initial encounter for closed fracture; X58.XXXA Exposure to other specified factors, initial encounter; Y93.9 Activity, unspecified; Y92.9 Unspecified place or not applicable; Y99.9 Unspecified external cause status; Z96.642 Presence of left artificial hip joint; Z48.02 Encounter for removal of sutures
CPT/HCPCS: 73502; 99212

== ENCOUNTER 2023-11-09 10:28 | Outpatient (AMB) | payer MEDICARE, BC, SELFPAY ==
--- NOTE | 2023-11-09 10:44 | A.OFFVIS_ITS ---
Intake Intake Visit Reasons: PO-s/p left hip ute dos 10/28/23 NE Intake Note: Michelle a 72 year old female presents today for a post operative visit s/p left hip ute, DOS 10/28/23 NE. Patient reports her pain level is 5-6 out of 10, stating feels achy. Allergies banana Allergy (Intermediate, Verified 11/09/23 11:18) lip swelling latex Allergy (Intermediate, Verified 11/09/23 11:18) lip swelling shellfish derived Allergy (Intermediate, Verified 11/09/23 11:18) lip swelling ibuprofen Allergy (Verified 11/09/23 11:18) Unknown HPI PO-s/p left hip ute dos 10/28/23 NE HPI Details 72-year-old female who [facility] for post-op left hip hemiarthroplasty, 10/28/[address] Rodriguez. She continues to have pain in her hip and rates the pain as about 5 on the scale of 0-10. She also c/o achiness in her hip. She is doing well otherwise and has no other concerns today. [facility] Medical History Anemia Anxiety Asthma Cervical spondylosis COVID-19 vaccine administered Elevated cholesterol History of MRSA infection HTN (hypertension) Hypothyroid Surgical History H/O colonoscopy Social History Household Members: None Housing: House Are you a primary health care facilities inspector to a significant other at home: No Do you presently have visiting nurse or other home services: No Patient Tobacco Use Status: Former Tobacco user Quit Date: age 30 Tobacco use type: Cigarette Second Hand Smoke Exposure: No Advance Directives Date on File: 03/09/21 service: No Review of Systems Const All systems reviewed & are unremarkable except as noted in HPI and below Physical Exam Extrem Other: Left hip Incision clean, dry and intact. No erythema or drainage. No pain with hip flex or ROM. NVI. Results Reviewed Results Reviewed: Xrays were obtained in the office today and personally reviewed by me of the left hip show intact prosthesis without signs of loosening. Assessment & Plan Assessment & Plan (1) S/P hip hemiarthroplasty: Code(s): Z96.649 - Presence of unspecified artificial hip joint (2) Left displaced femoral neck fracture: Code(s): S72.002A - Fracture of unspecified part of neck of left femur, initial encounter for closed fracture Plan Mahogany removed, steri strips applied. She will begin home PT to continue working on Gait training and strengthening. No driving for another 4 weeks. She will f/u in 4 weeks, sooner if needed. Orders: Orders PT Evaluation and Treatment Today S72.002A - Fracture of unspecified part of neck of left femur, initial encounter for closed fracture, Z96.649 - Presence of unspecified artificial hip joint Patient Instructions: Scribed for Dulce Maria Prescott PA-C, by Dominguez Goldsmith diagnostic medical sonographer, on 11/09/2023 at 10:45 AM EST. IDulce Maria PA-C, have personally reviewed and agree with the information entered by the scribe. Coding Level of Care Code Global (20646) Diagnoses S/P hip hemiarthroplasty Z96.649 Left displaced femoral neck fracture S72.002A
== END 2023-11-09 12:07 | disposition home or self-care (01) ==
PROVIDERS: PCP Internal Medicine; Visit Provider Physician Assistant
DX: Z96.649 Presence of unspecified artificial hip joint (principal); S72.002A Fracture of unspecified part of neck of left femur, initial encounter for closed fracture
CPT/HCPCS: 99024

== ENCOUNTER 2023-12-07 08:09 | Outpatient (REF) | payer MEDICARE, BC, SELFPAY ==
--- NOTE | ~2023-12-07 | XR_ITS ---
EXAMINATION: XR HIP, LEFT CLINICAL INFORMATION: Pain in left hip COMPARISON: November 08 TECHNIQUE: AP pelvis and left hip 2 views of the left hip. FINDINGS: Patient is status post total hip arthroplasty with well positioned prosthesis and no evidence of fractures. There are mild changes of osteoarthritis in the right hip joint. Soft tissues are unremarkable. XR/XR hip LT min 2V IMPRESSION: Well-positioned left hip prosthesis
== END 2023-12-07 08:10 | disposition home or self-care (01) ==
LOC: HO.HOSX 08:09
PROVIDERS: Visit Provider Physician Assistant
DX: Z96.642 Presence of left artificial hip joint (principal); Z47.1 Aftercare following joint replacement surgery
CPT/HCPCS: 73502; 99212

== ENCOUNTER 2023-12-07 09:22 | Outpatient (AMB) | payer MEDICARE, BC, SELFPAY ==
--- NOTE | 2023-12-07 09:32 | MHC.OFFVIS ---
Intake Intake Visit Reasons: PO-s/p left hip ute dos 10/28/23 NE Intake Note: Michelle is a 73 year old female who presents today for post op appointment s/p left hip ute, 10/28/23 NE. Patient reports she is doing well. Allergies banana Allergy (Intermediate, Verified 12/07/23 09:34) lip swelling latex Allergy (Intermediate, Verified 12/07/23 09:34) lip swelling shellfish derived Allergy (Intermediate, Verified 12/07/23 09:34) lip swelling ibuprofen Allergy (Verified 12/07/23 09:34) Unknown HPI PO-s/p left hip ute dos 10/28/23 NE HPI Details 73-year-old female who presents in the office today for 5 weeks status post left hip hemiarthroplasty, which was performed on 10/28/[address] Rodriguez. Patient was last seen in the office on 11/09/2023 by Dulce Maria Prescott PA-C. Patient was to begin PT to work on gait training and strengthening. While in the office the patient reports she is doing well. [facility] Medical History Anemia Anxiety Asthma Cervical spondylosis COVID-19 vaccine administered Elevated cholesterol History of MRSA infection HTN (hypertension) Hypothyroid Surgical History H/O colonoscopy Social History Household Members: None Housing: House Are you a primary medicare sales representative to a significant other at home: No Do you presently have visiting nurse or other home services: No Patient Tobacco Use Status: Former Tobacco user Quit Date: age 30 Tobacco use type: Cigarette Second Hand Smoke Exposure: No Advance Directives Date on File: 03/09/21 service: No Review of Systems Const All systems reviewed & are unremarkable except as noted in HPI and below Physical Exam Const General: cooperative, healthy appearing and no acute distress Resp Effort & Inspection: normal respiratory effort and able to speak in complete sentences Cardio Rate: regular rate Peripheral pulses: Peripheral pulses 2+ throughout GI Palpation (GI): Soft to palpation Skin Lesions: no lesions Rashes: no rashes Extrem Other: Left hip incision sites are completely healed with no signs of infection. Able to perform a SLR. Good internal and external ROM. NVI. Assessment & Plan Assessment & Plan (1) S/P hip hemiarthroplasty: Onset Date: ~11/09/23 Comment: NE Code(s): Z96.649 - Presence of unspecified artificial hip joint (2) Left displaced femoral neck fracture: Code(s): S72.002A - Fracture of unspecified part of neck of left femur, initial encounter for closed fracture (3) Closed hip fracture: Code(s): S72.009A - Fracture of unspecified part of neck of unspecified femur, initial encounter for closed fracture Qualifiers: Encounter type: initial encounter Laterality: left Qualified Code(s): S72.002A - Fracture of unspecified part of neck of left femur, initial encounter for closed fracture Plan Ms. Silva is a 73-year-old female who presents in the office today for 5 weeks status post left hip hemiarthroplasty, which was performed on 10/28/[address] Rodriguez. Patient was last seen in the office on 11/09/2023 by Dulce Maria Prescott PA-C. Patient was to begin PT to work on gait training and strengthening. While in the office the patient reports she is doing well. Patient will continue to work on the home exercise program. She is currently walking without any assistive devices. Follow up will be in 6 weeks, or sooner if needed. X-rays of the left hip which were obtained while in the office today and were reviewed by Brenda zamudio PA-C, revealed intact orthopedic hardware with good positioning. Orders: Orders PT Evaluation and Treatment Today S72.002A - Fracture of unspecified part of neck of left femur, initial encounter for closed fracture, Z96.649 - Presence of unspecified artificial hip joint Patient Instructions: Scribed by Leeann Dunlap medical review coordinator, for Brenda Parker PA-C on 12/07/2023 at 9:41 am, EST. Coding Level of Care Code Global (14135) Diagnoses S/P hip hemiarthroplasty Z96.649 Left displaced femoral neck fracture S72.002A Closed hip fracture S72.002A Encounter type: initial encounter Laterality: left
== END 2023-12-07 09:55 | disposition home or self-care (01) ==
PROVIDERS: PCP Internal Medicine; Visit Provider Physician Assistant
DX: Z96.649 Presence of unspecified artificial hip joint (principal); S72.002A Fracture of unspecified part of neck of left femur, initial encounter for closed fracture
CPT/HCPCS: 99024

== ENCOUNTER 2024-01-18 09:42 | Outpatient (AMB) | payer MEDICARE, BC, SELFPAY ==
--- NOTE | 2024-01-18 10:10 | MHC.OFFVIS ---
Intake Visit Reasons: PO-s/p left hip ute dos 10/28/23 NE Intake Note: Michelle is a 73 year old female who presents today for post op appointment s/p left hip ute, 10/28/23 NE. Patient reports she is doing well, states every once in a while she will have a kink. She continues to work with PT. Allergies banana Allergy (Intermediate, Verified 01/18/24 10:11) lip swelling latex Allergy (Intermediate, Verified 01/18/24 10:11) lip swelling shellfish derived Allergy (Intermediate, Verified 01/18/24 10:11) lip swelling ibuprofen Allergy (Verified 01/18/24 10:11) Unknown HPI HPI PO-s/p left hip ute dos 10/28/23 NE: Details: 73-year-old female who returns to the office today for post-op left hip hemiarthroplasty, 10/28/[address] Rodriguez. She states she has occasional pain and ?kink? in her hip however she is doing well otherwise. She continues to work with physical therapy as instructed. She has no other concerns today. [facility] Medical History Anemia Anxiety Asthma Cervical spondylosis COVID-19 vaccine administered Elevated cholesterol History of MRSA infection HTN (hypertension) Hypothyroid Surgical History H/O colonoscopy Social History Household Members: None Housing: House Are you a primary career placement specialist to a significant other at home: No Do you presently have visiting nurse or other home services: No Patient Tobacco Use Status: Former Tobacco user Quit Date: age 30 Tobacco use type: Cigarette Second Hand Smoke Exposure: No Advance Directives Date on File: 03/09/21 service: No Review of Systems Const All systems reviewed & are unremarkable except as noted in HPI and below Physical Exam Extrem Other: Left hip: Normal to inspection. No pain with hip flexion or ROM. No tenderness over the greater trochanter. NVI. Results Reviewed Results Reviewed: Xrays were obtained in the office today and personally reviewed by me of the left hip show intact prosthesis without signs of loosening. Assessment & Plan Assessment & Plan (1) S/P hip hemiarthroplasty: Onset Date: ~11/09/23 Comment: NE Code(s): Z96.649 - Presence of unspecified artificial hip joint Category: Surgical (2) Left displaced femoral neck fracture: Code(s): S72.002A - Fracture of unspecified part of neck of left femur, initial encounter for closed fracture Category: Medical (3) Closed hip fracture: Code(s): S72.009A - Fracture of unspecified part of neck of unspecified femur, initial encounter for closed fracture Category: Medical Qualifiers: Encounter type: initial encounter Laterality: left Qualified Code(s): S72.002A - Fracture of unspecified part of neck of left femur, initial encounter for closed fracture Plan She will continue with physical therapy to work on strengthening and balance exercises. She will increase activity as tolerated and see me back in 6 weeks with x-rays, sooner if needed. Orders: Orders XR hip LT min 2V Today M25.552 - Pain in left hip Patient Instructions: Scribed for Dulce Maria Prescott PA-C, by Dominguez Goldsmith biomedical engineering technologist, on 01/18/2024 at 9:00 AM EST.? I, Dulce Maria Prescott PA-C, have personally reviewed and agree with the information entered by the scribe. Coding Level of Care Code Global (20994) Diagnoses S/P hip hemiarthroplasty Z96.649 Left displaced femoral neck fracture S72.002A Closed hip fracture S72.002A Encounter type: initial encounter Laterality: left
== END 2024-01-18 10:33 | disposition home or self-care (01) ==
LOC: HO.HOS 09:42
PROVIDERS: PCP Internal Medicine; Visit Provider Physician Assistant
DX: Z96.649 Presence of unspecified artificial hip joint (principal); S72.002A Fracture of unspecified part of neck of left femur, initial encounter for closed fracture
CPT/HCPCS: 99024

== ENCOUNTER 2024-01-18 12:53 | Outpatient (REF) | payer MEDICARE, BC, SELFPAY ==
--- NOTE | ~2024-01-18 | XR_ITS ---
EXAMINATION: XR HIP, LEFT CLINICAL INFORMATION: Pain. COMPARISON: 12/04/2023. TECHNIQUE: AP view of the pelvis as well as AP view of the left hip. Cross table lateral view of the left hip. Limited visualization due to bowel gas and body habitus. FINDINGS: There is daultpht-ef-dvrfpy osteoarthritis in the right hip with superolateral joint space narrowing. Degenerative changes in the imaged lower lumbar spine. Redemonstration of left total hip arthroplasty. Hardware appears intact. Alignment maintained. Limited visualization on crosstable lateral view due to body habitus. XR/XR hip LT min 2V IMPRESSION: 1. Qudzvlit-ow-fbghqs osteoarthritis in the right hip. 2. Left total hip arthroplasty. Hardware appears intact. Alignment maintained.
== END 2024-01-18 12:54 | disposition home or self-care (01) ==
LOC: HO.HOSX 12:53
PROVIDERS: Visit Provider Physician Assistant
DX: S72.002D Fracture of unspecified part of neck of left femur, subsequent encounter for closed fracture with routine healing (principal); Z96.642 Presence of left artificial hip joint
CPT/HCPCS: 73502; 99212

== ENCOUNTER 2024-02-29 06:20 | Outpatient (REF) | payer MEDICARE, BC, SELFPAY ==
--- NOTE | ~2024-02-29 | XR_ITS ---
EXAMINATION: XR HIP, LEFT CLINICAL INFORMATION: Pain in left hip. COMPARISON: January 18, 2024, 12/04/2023. TECHNIQUE: AP view of the pelvis as well as AP view of the left hip. Cross table lateral view of the left hip. Limited visualization due to bowel gas and body habitus. FINDINGS: Diffuse demineralization. Redemonstration of xbiolkxq-ye-kibdai osteoarthritis in the right hip with superolateral joint space narrowing. Degenerative changes in the imaged lower lumbar spine. Redemonstration of left total hip arthroplasty. Hardware appears intact. Alignment maintained. Limited visualization on crosstable lateral view due to body habitus. XR/XR hip LT min 2V IMPRESSION: 1. Nmvcqxzs-lb-wifkua osteoarthritis in the right hip. 2. Left total hip arthroplasty. Hardware appears intact. Alignment maintained.
== END 2024-02-29 06:21 | disposition home or self-care (01) ==
LOC: HO.HOSX 06:20
PROVIDERS: Visit Provider Physician Assistant
DX: Z47.1 Aftercare following joint replacement surgery (principal); Z96.642 Presence of left artificial hip joint
CPT/HCPCS: 73502; 99212

== ENCOUNTER 2024-02-29 09:37 | Outpatient (AMB) | payer MEDICARE, BC, SELFPAY ==
--- NOTE | 2024-02-29 09:49 | MHC.OFFVIS ---
Intake Visit Reasons: PO-6wk f/u Lt hip ute Intake Note: Michelle is a 73 year old female who presents today for a post operative left hip ute on 10/28/23 with NE. Patient reports she is doing well, states being discharged from PT yesterday. She has no concerns today. Allergies banana Allergy (Intermediate, Verified 02/29/24 09:56) lip swelling latex Allergy (Intermediate, Verified 02/29/24 09:56) lip swelling shellfish derived Allergy (Intermediate, Verified 02/29/24 09:56) lip swelling ibuprofen Allergy (Verified 02/29/24 09:56) Unknown Medication List - Last Reconciled 02/29/24 by Dulce Maria Prescott PA-C acetaminophen ER 1,300 mg PO DAILY albuterol sulfate 90 mcg/actuation (ProAir HFA) 2 puffs inhalation Q4-6H PRN bisacodyl 5 mg PO BEDTIME calcium carbonate-vitamin D2 600 mg calcium- 200 unit 1 tab PO DAILY cetirizine 10 mg PO DAILY enoxaparin 40 mg (0.4 mL) subcut Q24H 41 days fluticasone propionate 50 mcg/actuation 1 spray intranasal DAILY PRN levothyroxine 112 mcg PO DAILY losartan-hydrochlorothiazide 100-25 mg 1 tab PO DAILY melatonin 3 mg PO BEDTIME PRN montelukast 1 tab PO QPM multivitamin with minerals 1 cap PO DAILY ondansetron HCl 4 mg PO Q6H PRN pantoprazole 20 mg PO DAILY pravastatin 1 tab PO DAILY valsartan-hydrochlorothiazide 320-12.5 mg 1 tab PO DAILY HPI HPI PO-6wk f/u Lt hip ute: Details: 73-year-old female who returns to the office today for post-op left hip hemiarthroplasty, 10/28/[address] Rodriguez. She reports she has mild pain in her hip however she is doing well overall. She has completed working on physical therapy. She has no other concerns today. [facility] Medical History Anemia Anxiety Asthma Cervical spondylosis COVID-19 vaccine administered Elevated cholesterol History of MRSA infection HTN (hypertension) Hypothyroid Surgical History H/O colonoscopy Social History (Reviewed 02/29/24 @ 09:57 by Christina Mckee REPLACED BY [facility]) Household Members: None Housing: House Are you a primary eye care professional to a significant other at home: No Do you presently have visiting nurse or other home services: No Patient Tobacco Use Status: Former Tobacco user Tobacco use type: Cigarette Second Hand Smoke Exposure: No Advance Directives Date on File: 03/09/21 service: No Review of Systems Const All systems reviewed & are unremarkable except as noted in HPI and below Physical Exam Extrem Other: Left hip: Normal to inspection. No pain with hip flexion or ROM. No tenderness over the greater trochanter. NVI. Results Reviewed Results Reviewed: Xrays were obtained in the office today and personally reviewed by me of the left hip show intact prosthesis without signs of loosening. Assessment & Plan Assessment & Plan (1) S/P hip hemiarthroplasty: Onset Date: ~11/09/23 Comment: NE Code(s): Z96.649 - Presence of unspecified artificial hip joint Category: Surgical (2) Left displaced femoral neck fracture: Code(s): S72.002A - Fracture of unspecified part of neck of left femur, initial encounter for closed fracture Category: Medical (3) Closed hip fracture: Code(s): S72.009A - Fracture of unspecified part of neck of unspecified femur, initial encounter for closed fracture Category: Medical Qualifiers: Encounter type: initial encounter Laterality: left Qualified Code(s): S72.002A - Fracture of unspecified part of neck of left femur, initial encounter for closed fracture Plan She is going to increase activities as tolerated continuing with the therapy exercises. She will see me back if symptoms arise. Orders: Orders XR hip LT min 2V Today M25.552 - Pain in left hip Patient Instructions: Scribed for Dulce Maria Prescott PA-C, by Dominguez Goldsmith medical examiner, on 02/29/2024 at 9:45 AM EST.? I, Dulce Maria Prescott PA-C, have personally reviewed and agree with the information entered by the scribe. Coding Level of Care Code Est Pt Level 3 (60531) Global (31985) Diagnoses S/P hip hemiarthroplasty Z96.649 Left displaced femoral neck fracture S72.002A Closed hip fracture S72.002A Encounter type: initial encounter Laterality: left
== END 2024-02-29 10:09 | disposition home or self-care (01) ==
PROVIDERS: PCP Internal Medicine; Visit Provider Physician Assistant
DX: S72.002D Fracture of unspecified part of neck of left femur, subsequent encounter for closed fracture with routine healing (principal)
CPT/HCPCS: 99213

== ENCOUNTER 2024-10-26 13:55 | Outpatient (AMB) | payer MEDICARE, BC, SELFPAY ==
[2024-10-26 14:07] VITALS: BP 120/62; PULSE 67; TEMP 36.6; O2SAT 96; BMI 25.5
--- NOTE | 2024-10-26 14:07 | MHC.OFFWIV ---
Intake Vital Signs 10/26/24 14:07 Height 5 ft 6 in Weight 158 lb BMI 25.5 BP 120/62 Blood Pressure Location Lt brachial Position Sitting Pulse 67 Pulse Source Pulse Oximeter Temp 97.9 F Temp Source Oral Pulse Oximetry (%) 96 Intake Visit Reasons: EP sprained LT arm Intake Note: pt is here for c/o possible sprained left arm Patient Tobacco Use Status: Former Tobacco user Allergies banana Allergy (Intermediate, Verified 10/26/24 14:07) lip swelling latex Allergy (Intermediate, Verified 10/26/24 14:07) lip swelling shellfish derived Allergy (Intermediate, Verified 10/26/24 14:07) lip swelling ibuprofen Allergy (Verified 10/26/24 14:07) Unknown Do you need a note to return to daycare/school/sports/work: No HPI HPI Comments History of Present Illness Details History of Present Illness - The patient is a 73-year-old female presenting with left wrist pain following a fall on ice. - The fall occurred two weeks prior, with the patient using her hands to brace against impact to protect a previously fractured hip. - Previous surgical procedures have been performed on both wrists, which led to chronic weakness but pt reports increased weakness in the left wrist and hand since the fall. - The patient reports a lack of immediate swelling or bruising in the wrist post-fall but experienced pain with specific movements like turning her hand over and back. - No medical evaluation or imaging has been conducted since the fall as the patient believed the wrist maintained functionality. - History of wrist fracture involving the ulna and radius exists, with ongoing weakness and discomfort, exacerbated by specific wrist movements or pressure. Physical Exam General: Cooperative, healthy appearing, comfortable, no acute distress and well developed Orientation: Patient oriented x3 Limitations: none Head: Normal to inspection Ears: Hearing grossly normal bilaterally Nose: Normal external nose present Face and sinus: Normal facial exam Eyes: Appearance normal, both eyes and all related structures Neck: Normal visual inspection and Yes full ROM Respiratory: Normal respiratory effort and able to speak in complete sentences. Skin: No rashes or lesions noted Neuro: Patient oriented x3 Extremities: as below [facility] Medical History Anemia Anxiety Asthma Cervical spondylosis COVID-19 vaccine administered Elevated cholesterol History of MRSA infection HTN (hypertension) Hypothyroid Surgical History H/O colonoscopy Social History Household Members: None Housing: House Are you a primary manager primary care to a significant other at home: No Do you presently have visiting nurse or other home services: No Patient Tobacco Use Status: Former Tobacco user Tobacco use type: Cigarette Second Hand Smoke Exposure: No Advance Directives Date on File: 03/09/21 service: No Review of Systems Const All systems reviewed & are unremarkable except as noted in HPI and below Physical Exam Vital Signs: Last Vital Signs Temp 97.9 F 10/26/24 14:07 Pulse 67 10/26/24 14:07 BP 120/62 10/26/24 14:07 Pulse Ox 96 10/26/24 14:07 BMI result Body Mass Index 25.5 Extrem Left upper extremity: shoulder/upper arm Details: inspection abnormal and normal ROM, elbow/forearm Details: normal to inspection and normal ROM; no tenderness and no swelling, wrist distal Details: normal to inspection, swelling (slight dorsal and volar), abnormal ROM Details: pain with active ROM (supination and pronation) Details: not with extension, not with flexion, not with ABduction and not with ADduction and pain with passive ROM (supination and pronation) Details: but not in extension, bu not in flexion, but not in ABduction and but not in ADduction, normal vascular exam, Tinel's negative, Phalen's negative and other; no tenderness, no abrasions, no lacerations, no ecchymosis and no deformity and hand (negative snuffbox tenderness) Details: normal to inspection, neuromotor exam normal, neurosensory exam normal, tendon exam normal, normal ROM of fingers and no swelling; no tenderness, no unusual warmth, no swelling, no abrasions, no lacerations and no ecchymosis Assessment & Plan Assessment & Plan (1) Fall: Code(s): W19.XXXA - Unspecified fall, initial encounter Qualifiers: Encounter type: initial encounter Qualified Code(s): W19.XXXA - Unspecified fall, initial encounter Plan: An x-ray of the left wrist is scheduled to assess for potential fractures resulting from the recent fall, considering the patient's previous fracture history. My interpretation of the XR is no acute fx or dislocation. A supportive brace for the left wrist and thumb was provided to help manage likely sprain, aiming to decrease stress on the injured area. This brace is also expected to address the weakness and discomfort exacerbated by specific wrist movements. Pt was instructed to wear for 4-5 days then wean off of it so as not to cause decreased ROM in the joint and she was told to do ROM exercises daily. Also advised to use ice and ibuprofen as needed. Follow up with PCP if no improvement in her pain. Patient was informed and verbally consented to the use of an ambient scribe for clinic note documentation during this visit. (2) Strain of unspecified muscle, fascia and tendon at wrist and hand level, left hand, initial encounter: Code(s): S66.912A - Strain of unspecified muscle, fascia and tendon at wrist and hand level, left hand, initial encounter Plan: as above Orders: Orders XR hand wrist LT Today M79.642 - Pain in left hand, S66.912A - Strain of unspecified muscle, fascia and tendon at wrist and hand level, left hand, initial encounter, W19.XXXA - Unspecified fall, initial encounter Coding Level of Care Code New Pt Level 4 (59625) Diagnoses Fall, initial encounter W19.XXXA Encounter type: initial encounter Strain of unspecified muscle, fascia and tendon at wrist and hand level, left hand, initial encounter S66.912A
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
== END 2024-10-26 15:06 | disposition home or self-care (01) ==
PROVIDERS: PCP Internal Medicine; Visit Provider Physician Assistant
DX: S66.912A Strain of unspecified muscle, fascia and tendon at wrist and hand level, left hand, initial encounter (principal); W19.XXXA Unspecified fall, initial encounter

== ENCOUNTER 2024-10-26 13:55 | Outpatient (REF) | payer MEDICARE, BC, SELFPAY ==
--- NOTE | ~2024-10-26 | XR_ITS ---
EXAMINATION: XR HAND/WRIST, LEFT CLINICAL INFORMATION: W19.XXXA - Unspecified fall, initial encounter COMPARISON: None available. TECHNIQUE: PA, lateral, and oblique views of the left hand and wrist. FINDINGS: Dorsal deformity of the distal metaphysis left radius. No gross acute cortical disruption. Degenerative changes in the radiocarpal joint, first carpometacarpal joint and middle and distal interphalangeal joints of the digits. Osteopenia versus osteoporosis. The metacarpal bones are intact. The phalanges are intact. XR/XR hand wrist LT IMPRESSION: Old traumatic dorsal deformity distal metaphysis of the left radius. Osteoarthrosis. Osteopenia versus osteoporosis. Electronically signed by: Kerwin Menard MD 10/26/2024 02:48 PM AGUSTÍN
== END 2024-10-26 13:56 | disposition home or self-care (01) ==
LOC: HO.HMGCX 13:55
PROVIDERS: PCP Internal Medicine; Visit Provider Physician Assistant
DX: S66.912A Strain of unspecified muscle, fascia and tendon at wrist and hand level, left hand, initial encounter (principal); M79.642 Pain in left hand; W19.XXXA Unspecified fall, initial encounter
CPT/HCPCS: 73110; 73130; 99202

== ENCOUNTER → 2024-10-26 14:30 | Outpatient (BNV) | payer MEDICARE, BC, SELFPAY | PROVIDERS: PCP Internal Medicine; Visit Provider Radiology Diagnostic Radiology | DX: S69.92XA Unspecified injury of left wrist, hand and finger(s), initial encounter (principal) | CPT/HCPCS: 73110; 73130 ==

== ENCOUNTER 2025-04-17 10:42 | Outpatient (AMB) | payer MEDICARE, BC, SELFPAY | END 2025-04-17 10:52 | disposition home or self-care (01) | LOC: HO.HMGAL 10:42 | PROVIDERS: PCP Internal Medicine; Visit Provider Registered Nurse Emergency | DX: J30.89 Other allergic rhinitis (principal) | CPT/HCPCS: 95117; 95165 ==

== ENCOUNTER 2025-05-27 11:14 | Outpatient (AMB) | payer MEDICARE, BC, SELFPAY | END 2025-05-27 11:17 | disposition home or self-care (01) | LOC: HO.HMGAL 11:14 | PROVIDERS: PCP Internal Medicine; Visit Provider Registered Nurse Emergency | DX: J30.89 Other allergic rhinitis (principal) | CPT/HCPCS: 95117; 95165 ==

== ENCOUNTER 2025-06-24 15:30 | Outpatient (AMB) | payer MEDICARE, BC, SELFPAY ==
--- OUTSIDE RECORDS SUMMARY | 2025-06-24 16:42 | XMS_ITS | Clinical Summary ---
Author Organization [facility] Address [address] [facility] [address] [place] [address] Care Team Providers Care Oil Dispatcher Name Role Phone Unavailable Primary Care Provider Unavailabl e Encounters Date Type Department Care Team Description 05/30/2025 11:50 AM EDT Immunization [facility] [address] [place] [address] Eve Molina RN Encounter for vaccination; Encounter for immunization from Last 3 Months Immunizations Immunization Administration Dates Next Due Influenza, High Dose Seasonal, Preservative Free 05/30/2025 Pfizer Covid-19 Vaccine 12+ 05/30/2025 Social History Tobacco Use Types Packs/Day Years Used Date Smoking Tobacco: Never Assessed Comments Unknown Sex and Gender Information Value Date Recorded Sex Assigned at Female 05/30/2025 3:26 PM EDT Legal Sex Female 3:24 PM EDT Gender Identity Female 05/30/2025 3:26 PM EDT Sexual Orientation Straight 05/30/2025 3: 26 PM EDT Plan of Treatment Health Maintenance Due Date Last Done Comments Depression Screening 1948 Lipid Panel 1948 SDOH Screening 1948 Alcohol/Substance Use Screening 1960 Tobacco Screening 1960 Hepatitis C Screening 1966 Zoster Vaccines (3 of 3) 01/05/2020 020, 09/11/2019, 12/22/2009 COVID-19 Vaccine ( season) 2025 05/30/2025, 08/26/2023, 12/14/2021, Additional history exists DTaP/Tdap/Td Vaccines (3 - Td or Tdap) 05/09/2028 05/09/2018, 02/06/2015, 10/20/1998 Pneumococcal Vaccine: 50+ Years Completed 07/28/2020, 06/24/2015, 01/03/2014 RSV Patients and Patients Aged 60 years or older Completed 09/20/2023 Influenza Vaccine Completed 05/30/2025, , 05/13/2023, Additional history exists HIB Vaccines Aged Out No longer eligi ble based on patient's age to complete this topic HPV Vaccines Aged Out No longer eligi ble based on patient's age to complete this topic Hepatitis A Vaccines Aged Out No long er eligible based on patient's age to complete this topic Hepatitis B Vaccines Aged Out No long er eligible based on patient's age to complete this topic IPV Vaccines Aged Out No longer eligi ble based on patient's age to complete this topic Meningococcal B Vaccine Aged Out No l onger eligible based on patient's age to complete this topic Meningococcal Vaccine Aged Out No gregory gloria eligible based on patient's age to complete this topic RSV under 20 months Aged Out No longe r eligible based on patient's age to complete this topic Rotavirus Vaccines Aged Out No longer eligible based on patient's age to complete [place] [id number] [facility] FEDERAL
== END 2025-06-24 15:31 | disposition home or self-care (01) ==
LOC: HO.HMGAL 15:30
PROVIDERS: PCP Internal Medicine; Visit Provider Registered Nurse Emergency
DX: J30.89 Other allergic rhinitis (principal)
CPT/HCPCS: 95117; 95165

== ENCOUNTER 2025-07-24 11:06 | Outpatient (AMB) | payer MEDICARE, BC, SELFPAY ==
--- OUTSIDE RECORDS SUMMARY | 2025-07-24 13:13 | XMS_ITS | Clinical Summary ---
Author Organization [facility] Address [address] [facility] [address] [place] [address] Care Team Providers Care Track Fitter Name Role Phone Unavailable Primary Care Provider Unavailabl e Encounters Date Type Department Care Team Description 05/30/2025 11:50 AM EDT Immunization [facility] [address] [place] [address] Eve Molina RN Encounter for vaccination; Encounter [...] to complete [place] [id number] [facility] FEDERAL
== END 2025-07-24 11:06 | disposition home or self-care (01) ==
LOC: HO.HMGAL 11:06
PROVIDERS: PCP Internal Medicine; Visit Provider Registered Nurse Emergency
DX: J30.89 Other allergic rhinitis (principal)
CPT/HCPCS: 95117; 95165